=== PATIENT | male | born 1935 | race African-American/Black ===

== ENCOUNTER 2017-03-31 10:20 | Observation (INO) | payer OTHER, MEDICARE ==
[~2017-03-31] VITALS: Ht 172.7 cm; Wt 58.6 kg
[2017-03-31] VITALS (7 sets, daily range): BP systolic 149–185; BP diastolic 67–80; PULSE 50–74; RESP 16–20; TEMP 97.9–98.8; O2SAT 96–100
[2017-03-31] MEDS ORDERED: OMEP20TA PO (10:57)
[2017-03-31] MEDS ORDERED: ASPI81CH37 CHEW (10:57)
[2017-03-31] MEDS ORDERED: VENL75TA PO (10:57)
[2017-03-31] MEDS ORDERED: DOCU250C PO (10:57)
[2017-03-31] MEDS ORDERED: SIMV80TA PO (10:57)
[2017-03-31] MEDS ORDERED: ERYT1SUS5 PO (10:57)
[2017-03-31] MEDS ORDERED: NICO14DI23 (10:57)
[2017-03-31] MEDS ORDERED: FINA5TAB2 PO (10:57)
[2017-03-31] MEDS ORDERED: FERR324T4 PO (10:57)
[2017-03-31] MEDS ORDERED: CARB15DR20 (10:57)
[2017-03-31] MEDS ORDERED: ASPIRIN 81 MG CHEW TAB PO ONE (11:00)
[2017-03-31] MEDS ORDERED: SODIUM CHLORIDE 0.9% FLUSH 10 ML FLUSH IVF PRN (11:00)
[2017-03-31] MEDS ORDERED: ENALAPRILAT 2.5 MG/2 ML VIAL IV PUSH ONE (11:00)
[2017-03-31] MEDS: RESP: ALBUTEROL 2.5 MG/3 ML NEB (SCH) INH (11:25)
[2017-03-31 11:27] LABS: AUTOMATED NEUTROPHIL # 3.4 TH/MM3 (1.8-7.7); BASOPHIL % 0.5 % (0.0-2.0); EOSINOPHIL # 0.1 TH/MM3 (0-0.4); EOSINOPHIL % 1.3 % (0.0-4.0); HEMATOCRIT 35.1 % (39.0-51.0); HEMO FLAGS DIFF FINAL; LYMPH % 27.8 % (9.0-44.0); LYMPHOCYTE # 1.6 TH/MM3 (1.0-4.8); MEAN CORPUSCULAR HEMOGLOBIN 30.1 PG (27.0-34.0); MEAN CORPUSCULAR HGB CONC 32.4 % (32.0-36.0); MONO % 9.3 % (0.0-8.0); NEUT % 61.1 % (16.0-70.0); PLATELET COUNT 134 TH/MM3 (150-450); RED BLOOD COUNT 3.77 MIL/MM3 (4.50-5.90); WHITE BLOOD COUNT 5.6 TH/MM3 (4.0-11.0)
--- NOTE | 2017-03-31 11:34 | RADRPT ---
EXAM DATE/TIME: 03/31/2017 11:05 [place] COMPARISON: No previous studies available for comparison. INDICATIONS : Shortness of breath. MEDICAL HISTORY : Hypertension. Diabetes mellitus type II. SURGICAL HISTORY : Cholecystectomy. ENCOUNTER: Initial ACUITY: 1 day PAIN SCORE: 0/10 LOCATION: Bilateral chest FINDINGS: No focal consolidation. Minimal basilar atelectasis. Elevated left hemidiaphragm. No effusion or pneu mothorax. Remote right clavicle fracture and multiple remote rib fractures on the right. Intra-articu lar or periarticular ossifications around the right shoulder. CONCLUSION: 1. Minimal basilar atelectasis. Elevated left hemidiaphragm. No focal consolidation or effusion. Nelson Stafford MD on March 31, 2017 at 11:31 Board Certified Radiologist. This report was verified electronically.
[2017-03-31 11:35] LABS: PROTHROMBIN TIME - PATIENT 11.1 SEC (9.8-11.6)
[2017-03-31 11:37] LABS: APTT (PATIENT) 32.7 SEC (24.3-30.1)
[2017-03-31 11:50] LABS: ALT (GPT) 18 U/L (12-78); ANION GAP 11 MEQ/L (5-15); AST (GOT) 14 U/L (15-37); BICARBONATE 19.2 MEQ/L (21.0-32.0); BLOOD UREA NITROGEN 28 MG/DL (7-18); CHLORIDE 113 MEQ/L (98-107); GLOMERULAR FILTRATION RATE 37 ML/MIN (>89); MAGNESIUM 1.9 MG/DL (1.5-2.5); POTASSIUM 4.1 MEQ/L (3.5-5.1); SODIUM (NA) 143 MEQ/L (136-145)
[2017-03-31 11:53] LABS: ALKALINE PHOSPHATASE 99 U/L (45-117); CREATINE KINASE 112 U/L (39-308); TOTAL BILIRUBIN ADULT 0.4 MG/DL (0.2-1.0)
[2017-03-31 12:05] LABS: CKMB 1.5 NG/ML (0.5-3.6)
--- NOTE | 2017-03-31 12:23 | PD ---
HPI Chief Complaint: Cardiac Complaint Time Seen by Provider: 10:42 Travel History International Travel<30 days: No Contact w/Intl Traveler<30days: No Traveled to known affect area: No History of Present Illness HPI AT [facility]ISIT WHEN STAFF NOTICED HE HAD A LOW HEART RATE, EKG DONE FOUND SINUS MUNIRA AT 38, SENT TO ED...PT HAS NO ACTIVE COMPLAINT AT THIS TIME PFSH Past Medical History Diabetes: Yes Patient Takes Glucophage: No Diverticulitis: Yes GERD: Yes Hypertension: Yes Reproductive: Yes (benign prostatatic hyperplasia) Past Surgical History Abdominal Surgery: Yes (hernia) Cholecystectomy: Yes Social History Alcohol Use: Yes (couple times a week) Tobacco Use: Yes (/2 ppd) Substance Use: No Allergies-Medications (Allergen,Severity, Reaction): Coded Allergies: No Known Allergies (Unverified , 03/31/17) Reported Meds & Prescriptions Reported Meds & Active Scripts Active Reported Eq Nicotine (Nicotine) 14 Mg/24 Hr Dis Erythromycin Ethylsuccinate Liq (Erythromycin Ethylsuccinate) 200 Mg/Ml Susp 200 Mg PO Q6H Carbamide Peroxide 6.5 % Drops Effexor (Venlafaxine HCl) 75 Mg Tab 75 Mg PO DAILY Finasteride 5 Mg Tab 5 Mg PO DAILY Do not crush. Simvastatin 80 Mg Tab 80 Mg PO DAILY Omeprazole 20 Mg Tab 20 Mg PO DAILY Ferrous Sulfate DR (Ferrous Sulfate) 324 Mg Tabdr 324 Mg PO DAILY Docusate Sodium 250 Mg Cap 250 Mg PO DAILY Aspirin Low Dose (Aspirin) 81 Mg Chew 81 Mg CHEW DAILY Review of Systems Except as stated in HPI: all other systems reviewed are Neg Cardiovascular: Positive: Palpitations Physical Exam Narrative GENERAL: SKIN: Warm and dry. HEAD: Atraumatic. Normocephalic. EYES: Pupils equal and round. No scleral icterus. No injection or drainage. ENT: No nasal bleeding or discharge. Mucous membranes pink and moist. NECK: Trachea midline. No JVD. CARDIOVASCULAR: Regular rate and rhythm. BUT BRADYCARDIC...STRONG PERIPHERAL PULSES AT RADIUS/DP BILATERALLY RESPIRATORY: No accessory muscle use. Clear to auscultation. Breath sounds equal bilaterally. GASTROINTESTINAL: Abdomen soft, non-tender, nondistended. Hepatic and splenic margins not palpable. MUSCULOSKELETAL: Extremities without clubbing, cyanosis, or edema. No obvious deformities. NEUROLOGICAL: Awake and alert. No obvious cranial nerve deficits. Motor grossly within normal limits. Five out of 5 muscle strength in the arms and legs. Normal speech. PSYCHIATRIC: Appropriate mood and affect; insight and judgment normal. Data Data Last Documented VS Orders Electrocardiogram (03/31/17 10:52) B-Type Natriuretic Peptide (03/31/17 10:52) Ckmb (Isoenzyme) Profile (03/31/17 10:52) Complete Blood Count With Diff (03/31/17 10:52) Comprehensive Metabolic Panel (03/31/17 10:52) Magnesium (Mg) (03/31/17 10:52) Prothrombin Time / Inr (Pt) (03/31/17 10:52) Act Partial Throm Time (Ptt) (03/31/17 10:52) Troponin I (03/31/17 10:52) Chest, Single Ap (03/31/17 10:52) Ecg Monitoring (03/31/17 10:52) Bilateral Bp Monitoring (03/31/17 10:52) Iv Access Insert/Monitor (03/31/17 10:52) Oximetry (03/31/17 10:52) Oxygen Administration (03/31/17 10:52) Aspirin Chew (Aspirin Chew) (03/31/17 11:00) Sodium Chloride 0.9% Flush (Ns Flush) (03/31/17 11:00) Enalaprilat Inj (Vasotec Inj) (03/31/17 11:00) Blood Glucose (03/31/17 10:55) Albuterol Neb (Albuterol Neb) (03/31/17 11:00) CKMB (03/31/17 11:00) CKMB% (03/31/17 11:00) Aspirin Chew (Aspirin Chew) (04/01/17 09:00) Finasteride (Proscar) (04/01/17 09:00) Docusate Calcium (Surfak) (04/01/17 09:00) Ferrous Sulfate (Ferrous Sulfate) (04/01/17 09:00) Pantoprazole (Protonix) (04/01/17 09:00) Atorvastatin (Lipitor) (04/01/17 09:00) Venlafaxine Xr (Effexor Xr) (04/01/17 09:00) Admit Order (Ed Use Only) (03/31/17 12:42) Labs MDM Medical Decision Making Medical Screen Exam Complete: Yes Emergency Medical Condition: Yes Medical Record Reviewed: Yes Interpretation(s) SINUS MUNIRA AT 39, CLAUDIA, NONSPEC STT CHANGES, NO STEMI PATTERN Differential Diagnosis HYPERKALEMIA V MUNIRA REQUIRING PACER V RENAL INDUCED V HYPOGLYCEMIA Narrative Course CURRENTLY CONTINUES TO BE BRADYCARDIC RANGING FROM 38-55, BP WAS ELEV WITH SBP 200, EXCEPT FOR RENAL INSUFF ELECTROLYTES WNL, CXR DID NOT SHOW PULM EDEMA, WILL ADVISED AT LEAST OBSERVATION FOR CARDIO EVAL AND POSSIBLE NEED FOR PACEMAKER Critical Care Narrative CRITICAL CARE NOTE: With evaluation of the patient, labs, EKG, receipt of radiologic studies, administration of medications, reevaluation the patient and discussion of the patient with the admitting physicians, the total critical care time was [45] minutes. Time to perform other separately billable procedures was not included in the critical care time. patient had bedside paddles ready in event external pacing necessary as well as stand by atropine in case patient became symptomatic bradycardia. preparations made anticipatory due to severe bradycardia Diagnosis Primary Impression: Bradycardia, sinus, persistent, severe Additional Impression: RENAL INSUFFICIENCY Admitting Information Admitting Physician Requests: Observation Scripts Nicotine (Eq Nicotine)14 Mg/24 Hr Dis1 Patch T-DERMAL DAILY #30 PATCH Prov:Seema Sorto MD 04/02/17 Lisinopril 5 Mg Tab5 Mg PO DAILY #30 TAB Prov:Seema Sorto MD 04/02/17 Vasile Luevano MD Mar 31, 2017 12:23 Neutrophils # (Auto) 3.4 TH/MM3 Lymphocytes # (Auto) 1.6 TH/MM3 Monocytes # (Auto) 0.5 TH/MM3 Eosinophils # (Auto) 0.1 TH/MM3 Basophils # (Auto) 0.0 TH/MM3 CBC Comment DIFF FINAL Differential Comment Prothrombin Time 11.1 SEC Prothromb Time International 1.0 RATIO Ratio Activated Partial 32.7 SEC Thromboplast Time Sodium Level 143 MEQ/L Potassium Level 4.1 MEQ/L Chloride Level 113 MEQ/L Carbon Dioxide Level 19.2 MEQ/L Anion Gap 11 MEQ/L Blood Urea Nitrogen 28 MG/DL Creatinine 2.12 MG/DL Estimat Glomerular Filtration 37 ML/MIN Rate Random Glucose 84 MG/DL Calcium Level 8.9 MG/DL Magnesium Level 1.9 MG/DL Total Bilirubin 0.4 MG/DL Aspartate Amino Transf 14 U/L (AST/SGOT) Alanine Aminotransferase 18 U/L (ALT/SGPT) Alkaline Phosphatase 99 U/L Total Creatine Kinase 112 U/L Creatine Kinase MB 1.5 NG/ML Troponin I LESS THAN 0.02 NG/ML B-Type Natriuretic Peptide 284 PG/ML Total Protein 7.1 GM/DL Albumin 3.6 GM/DL MDM Medical Decision Making Medical Screen Exam Complete: Yes Emergency Medical Condition: Yes Medical Record Reviewed: Yes Interpretation(s) SINUS MUNIRA AT 39, CLAUDIA, NONSPEC STT CHANGES, NO STEMI PATTERN Differential Diagnosis HYPERKALEMIA V MUNIRA REQUIRING PACER V RENAL INDUCED V HYPOGLYCEMIA Narrative Course CURRENTLY CONTINUES TO BE BRADYCARDIC RANGING FROM 38-55, BP WAS ELEV WITH SBP 200, EXCEPT FOR RENAL INSUFF ELECTROLYTES WNL, CXR DID NOT SHOW PULM EDEMA, WILL ADVISED AT LEAST OBSERVATION FOR CARDIO EVAL AND POSSIBLE NEED FOR PACEMAKER Diagnosis Primary Impression: Bradycardia, sinus, persistent, severe Additional Impression: RENAL INSUFFICIENCY Admitting Information Admitting Physician Requests: Observation Vasile Luevano MD Mar 31, 2017 12:23
[2017-03-31] MEDS ORDERED: NALOXONE HCL 0.4 MG/ML AMP IV PRN (13:15)
[2017-03-31] MEDS ORDERED: ACETAMINOPHEN 325 MG TAB PO PRN ×2 (13:15)
[2017-03-31] MEDS ORDERED: SODIUM CHLORIDE 0.9% FLUSH 10 ML FLUSH IV FLUSH PRN (13:15)
[2017-03-31] MEDS ORDERED: amLODIPine BESYLATE 5 MG TAB PO SCH (13:15)
--- NOTE | 2017-03-31 13:21 | HHI.HP ---
[facility] Service [facility] Primary Care Physician [facility] Admission Diagnosis SEVERE BRADYCARDIA Diagnoses: Chief Complaint: Referred by [place] Travel History International Travel<30 Days: No Contact w/Intl Traveler <30 Da: No Traveled to Known Affected Are: No History of Present Illness The patient is an 82-year-old male with a past medical history of diabetes and chronic kidney disease who is presenting to the hospital with a slow heart rate. The patient said that he went to the [place] for a routine follow-up appointment where he was found to have a low heart rate. The patient denies any symptoms. He says he has been breathing comfortably. He denies any aches or pains. He has been eating well. He denies any irregularity in bowel movements. He has not been having any chest pain. He does endorse chronic insomnia. He says he ambulates with a cane because he has pain from prior leg surgeries. In the emergency department he was found to have a heart rate in the high 30s. His blood pressure was also noted to be very high, and the patient denies having a history of high blood pressure. The patient wanted to go home. He says he has been using a nicotine patch but still smokes half a pack a day. He says he was told he has a kidney disease but is unsure what kind. Review of Systems Except as stated in HPI: all other systems reviewed are Neg Past Family Social History Past Medical History Diabetes Chronic kidney disease Bilateral broken legs status post surgery Left hernia repair Allergies: Coded Allergies: No Known Allergies (Unverified , 03/31/17) Active Ordered Medications Current Medications Medications (Trade) Dose Ordered Sig/Donny Route Start Time Stop Time Status Last Admin (NS Flush) 2 ml UNSCH PRN IVF 03/31/17 11:00 (Aspirin Chew) 81 mg DAILY CHEW 04/01/17 09:00 (Proscar) 5 mg DAILY PO 04/01/17 09:00 (Surfak) 240 mg DAILY PO 04/01/17 09:00 (Ferrous Sulfate) 325 mg DAILY PO 04/01/17 09:00 (Protonix) 20 mg DAILY PO 04/01/17 09:00 (Lipitor) 40 mg DAILY PO 04/01/17 09:00 (Effexor Xr) 75 mg DAILY PO 04/01/17 09:00 (NS Flush) 2 ml UNSCH PRN IV FLUSH 03/31/17 13:15 UNV (NS Flush) 2 ml BID IV FLUSH 03/31/17 21:00 UNV (Tylenol) 650 mg Q4H PRN PO 03/31/17 13:15 UNV (Heparin Inj) 5,000 units Q8H SQ 03/31/17 13:15 UNV (Tylenol) 650 mg Q6H PRN PO 03/31/17 13:15 UNV (Narcan Inj) 0.4 mg UNSCH PRN IV 03/31/17 13:15 UNV (Bre-Colace) 1 tab BID PO 03/31/17 21:00 UNV Family History The patient denies pertinent family history Social History The patient smokes half a pack daily. He has social alcohol use. Physical Exam Vital Signs Vital Signs Date Time Temp Pulse Resp B/P Pulse Ox O2 Delivery O2 Flow Rate FiO2 03/31/17 12:55 74 18 185/74 97 03/31/17 11:14 50 18 168/72 98 03/31/17 11:00 98 Room Air 03/31/17 10:21 98.8 50 20 153/71 99 Physical Exam GENERAL: This is a well-nourished, well-developed patient, in no apparent distress. SKIN: No rashes, ecchymoses or lesions. Cool and dry. HEAD: Atraumatic. Normocephalic. No temporal or scalp tenderness. EYES: Pupils equal round and reactive. Extraocular motions intact. No scleral icterus. No injection or drainage. ENT: Nose without bleeding, purulent drainage or septal hematoma. Throat without erythema, tonsillar hypertrophy or exudate. Uvula midline. Airway patent. NECK: Trachea midline. No JVD or lymphadenopathy. Supple, nontender, no meningeal signs. CARDIOVASCULAR: Bradycardic without murmurs, gallops, or rubs. RESPIRATORY: Clear to auscultation. Breath sounds equal bilaterally. No wheezes , rales, or rhonchi. GASTROINTESTINAL: Abdomen soft, non-tender, nondistended. No hepato-splenomegaly , or palpable masses. No guarding. MUSCULOSKELETAL: Extremities without clubbing, cyanosis, or edema. No joint tenderness, effusion, or edema noted. NEUROLOGICAL: Awake and alert. Cranial nerves II through XII intact. Motor and sensory grossly within normal limits. Five out of 5 muscle strength in all muscle groups. Normal speech. PSYCH: Mood and affect appropriate. Laboratory Laboratory Tests Test 03/31/17 11:00 White Blood Count 5.6 Red Blood Count 3.77 Hemoglobin 11.4 Hematocrit 35.1 Mean Corpuscular Volume 93.0 Mean Corpuscular Hemoglobin 30.1 Mean Corpuscular Hemoglobin 32.4 Concent Red Cell Distribution Width 13.0 Platelet Count 134 Mean Platelet Volume 9.9 Neutrophils (%) (Auto) 61.1 Lymphocytes (%) (Auto) 27.8 Monocytes (%) (Auto) 9.3 Eosinophils (%) (Auto) 1.3 Basophils (%) (Auto) 0.5 Neutrophils # (Auto) 3.4 Lymphocytes # (Auto) 1.6 Monocytes # (Auto) 0.5 Eosinophils # (Auto) 0.1 Basophils # (Auto) 0.0 CBC Comment DIFF FINAL Differential Comment Prothrombin Time 11.1 Prothromb Time International 1.0 Ratio Activated Partial 32.7 Thromboplast Time Sodium Level 143 Potassium Level 4.1 Chloride Level 113 Carbon Dioxide Level 19.2 Anion Gap 11 Blood Urea Nitrogen 28 Creatinine 2.12 Estimat Glomerular Filtration 37 Rate Random Glucose 84 Calcium Level 8.9 Magnesium Level 1.9 Total Bilirubin 0.4 Aspartate Amino Transf 14 (AST/SGOT) Alanine Aminotransferase 18 (ALT/SGPT) Alkaline Phosphatase 99 Total Creatine Kinase 112 Creatine Kinase MB 1.5 Troponin I LESS THAN 0.02 B-Type Natriuretic Peptide 284 Total Protein 7.1 Albumin 3.6 Result Diagram: 03/31/17 1100 03/31/17 1100 Imaging Last Impressions Chest X-Ray 03/31/17 1052 Signed Impressions: Service Date/Time: March 11:05 - CONCLUSION: 1. Minimal basilar atelectasis. Elevated left hemidiaphragm. No focal consolidation or effusion. Nelson Stafford MD Assessment and Plan Assessment and Plan Sinus bradycardia HR has been in the high 30s. The pt denies any symptoms. [facility] Troponin negative. No ischemia changes on EKG. CXR unremarkable. Not on any AV vianney blocking medications. - continue to monitor on telemetry. - trend troponins. - cardiology consult if pt develops symptoms or bradycardia becomes more pronounced. Accelerated hypertension The patient denies any history of hypertension. - Vasotec as needed. - Start lisinopril as the patient has a history of diabetes and chronic kidney disease. CKD Unsure of baseline. - avoid nephrotoxic agents. Nicotine abuse The pt smokes a half pack daily. - cessation instruction. - continue nicotine patch. DM The pt says he is no longer on meds for diabetes. - follow glucose and start sliding scale if needed. Leg pain/ Weakness The patient endorses chronic leg pain and has been having difficulty ambulating. He uses a cane. - Physical therapy evaluation. - Tylenol as needed. Anemia Unsure of baseline. Likely secondary to renal disease. - Follow CBC. PPx: Heparin Code Status Full Discussed Condition With Pt, pt's family, nurse, Hakan Jones DO Mar 31, 2017 13:21
[2017-03-31] MEDS ORDERED: LISINOPRIL 10 MG TAB PO SCH (13:30)
[2017-03-31] MEDS ORDERED: ARTIFICIAL TEARS OPTH SOLN 15 ML BTL LEFT EYE PRN (13:30)
--- NOTE | 2017-03-31 13:46 | EKG ---
Date Performed: 03/31/2017 Time Performed: 10:47:01 PTAGE: 82 years EKG: SINUS BRADYCARDIA BORDERLINE ECG NO PREVIOUS TRACING DOCTOR: Polly [place] Interpretating Date/Time 03/31/2017 13:43:09
[2017-03-31] MEDS: NICOTINE 14 MG/24 HR PATCH T-DERMAL SCH (14:06)
[2017-03-31] MEDS: HEPARIN SODIUM - SQ 10,000 UNITS/ML VIAL SQ SCH ×2 (14:07→22:33)
[2017-03-31 14:24] LABS: BACTERIA, URINE RARE /hpf; BLOOD, URINE TRACE (NEG); GLUCOSE,URINE NEG (NEG); HYALINE CAST, URINE 3 /lpf (RARE); KETONE, URINE NEG (NEG); NITRITE,URINE NEG (NEG); PH, URINE 5.5 (5.0-8.5); SQUAMOUS EPITHELIAL CELL URINE <1 /hpf (0-5); TRANSITIONAL EPI CELLS, URINE <1 /hpf; URINE COLOR LIGHT-YELLOW (YELLW/STRAW)
[2017-03-31 14:26] LABS: COMMENT (UR) CULTURE INDICATED; CULTURE IF INDICATED CULTURE INDICATED
[2017-03-31] MEDS ORDERED: DOCUSATE SODIUM 50 MG/SENNA 8.6 MG TAB PO SCH (21:00)
[2017-03-31] MEDS ORDERED: MELATONIN 5 MG TAB PO PRN (21:00)
[2017-03-31] MEDS: SODIUM CHLORIDE 0.9% FLUSH 10 ML FLUSH IV FLUSH SCH (22:33)
[2017-04-01] VITALS (10 sets, daily range): BP systolic 140–199; BP diastolic 59–108; PULSE 37–80; RESP 16–18; TEMP 98–98.3; O2SAT 98–100
[2017-04-01] MEDS: HEPARIN SODIUM - SQ 10,000 UNITS/ML VIAL SQ SCH ×3 (06:40→22:08)
[2017-04-01 08:16] LABS: AUTOMATED NEUTROPHIL # 2.7 TH/MM3 (1.8-7.7); BASOPHIL % 0.5 % (0.0-2.0); EOSINOPHIL # 0.1 TH/MM3 (0-0.4); EOSINOPHIL % 1.5 % (0.0-4.0); HEMATOCRIT 35.5 % (39.0-51.0); HEMO FLAGS DIFF FINAL; LYMPH % 33.1 % (9.0-44.0); LYMPHOCYTE # 1.6 TH/MM3 (1.0-4.8); MEAN CELL VOLUME 92.9 FL (80.0-100.0); MEAN CORPUSCULAR HEMOGLOBIN 30.2 PG (27.0-34.0); MEAN CORPUSCULAR HGB CONC 32.5 % (32.0-36.0); MONO % 8.2 % (0.0-8.0); NEUT % 56.7 % (16.0-70.0); PLATELET COUNT 129 TH/MM3 (150-450); RED BLOOD COUNT 3.83 MIL/MM3 (4.50-5.90); WHITE BLOOD COUNT 4.8 TH/MM3 (4.0-11.0)
[2017-04-01 08:38] LABS: BICARBONATE 22.5 MEQ/L (21.0-32.0); POTASSIUM 4.3 MEQ/L (3.5-5.1)
[2017-04-01] MEDS ORDERED: FINASTERIDE 5 MG TAB PO SCH (09:00)
[2017-04-01] MEDS: FERROUS SULFATE 325 MG (65 MG ELEMENTAL IRON) TAB PO SCH (09:44)
[2017-04-01] MEDS: REMOVE OLD PATCH T-DERMAL SCH (09:45)
[2017-04-01] MEDS: NICOTINE 14 MG/24 HR PATCH T-DERMAL SCH (09:45)
[2017-04-01] MEDS: PANTOPRAZOLE SOD 20 MG DELAYED RELEASE TAB PO SCH (09:46)
[2017-04-01] MEDS: LISINOPRIL 5 MG TAB PO SCH (09:46)
[2017-04-01] MEDS: ASPIRIN 81 MG CHEW TAB CHEW SCH (09:46)
[2017-04-01] MEDS: DOCUSATE CALCIUM 240 MG CAP PO SCH (09:46)
[2017-04-01] MEDS: TAMSULOSIN HCL 0.4 MG CAP PO SCH (09:46)
[2017-04-01] MEDS: VENLAFAXINE HCL XR 75 MG CAP PO SCH (09:46)
[2017-04-01] MEDS: SODIUM CHLORIDE 0.9% FLUSH 10 ML FLUSH IV FLUSH SCH ×2 (09:46→22:07)
[2017-04-01] MEDS: ATORVASTATIN 40 MG TAB PO SCH (09:46)
--- NOTE | 2017-04-01 10:27 | HHI.PR ---
Subjective Remarks Complaints of feeling lightheadedness while walking. Also he has sob at times. He denies any chest pain. No n/v/d/c. No diaphoresis. Would like to see cardiology, discussed regarding possible PM Objective Vitals Vital Signs Date Time Temp Pulse Resp B/P Pulse Ox O2 Delivery O2 Flow Rate FiO2 04/01/17 08:00 98.3 37 18 163/85 100 04/01/17 04:00 98.0 50 16 140/59 98 04/01/17 04:00 Room Air 04/01/17 00:00 Room Air 04/01/17 00:00 98.2 51 16 152/65 98 03/31/17 20:18 53 03/31/17 20:00 98.0 54 16 172/80 100 03/31/17 20:00 Room Air 03/31/17 17:50 97.9 52 20 160/72 100 03/31/17 14:46 59 18 149/67 96 03/31/17 12:55 74 18 185/74 97 03/31/17 11:14 50 18 168/72 98 03/31/17 11:00 98 Room Air I/O 03/31/17 03/31/17 03/31/17 04/01/17 04/01/17 04/01/17 07:00 15:00 23:00 07:00 15:00 23:00 Intake Total 0 ml 0 ml Output Total 0 ml Balance 0 ml 0 ml Intake Oral 0 ml 0 ml Output Urine Total 0 ml # Voids 0 # Bowel Movements 0 0 Result Diagram: 04/01/17 0753 04/01/17 0753 Imaging Last Impressions Chest X-Ray 03/31/17 1052 Signed Impressions: Service Date/Time: March 11:05 - CONCLUSION: 1. Minimal basilar atelectasis. Elevated left hemidiaphragm. No focal consolidation or effusion. Nelson Stafford MD Objective Remarks GENERAL: This is a well-nourished, well-developed patient, in no apparent distress. NECK: Trachea midline. No JVD or lymphadenopathy. Supple, nontender, no meningeal signs. CARDIOVASCULAR: Bradycardic without murmurs, gallops, or rubs. RESPIRATORY: Clear to auscultation. Breath sounds equal bilaterally. No wheezes , rales, or rhonchi. GASTROINTESTINAL: Abdomen soft, non-tender, nondistended. No hepato-splenomegaly , or palpable masses. No guarding. MUSCULOSKELETAL: Extremities without clubbing, cyanosis, or edema. No joint tenderness, effusion, or edema noted. NEUROLOGICAL: Awake and alert. Cranial nerves II through XII intact. Motor and sensory grossly within normal limits. Five out of 5 muscle strength in all muscle groups. Normal speech. PSYCH: Mood and affect appropriate. A/P Assessment and Plan Sinus bradycardia HR has been in the high 30s. The pt denies any symptoms. [facility] Troponin negative. No ischemia changes on EKG. CXR unremarkable. Not on any AV vianney blocking medications. - continue to monitor on telemetry. - trend troponins. - cardiology consult Accelerated hypertension The patient denies any history of hypertension. - Vasotec as needed. - Start lisinopril as the patient has a history of diabetes and chronic kidney disease. CKD Unsure of baseline. - avoid nephrotoxic agents. Nicotine abuse The pt smokes a half pack daily. - cessation instruction. - continue nicotine patch. DM diet controlled The pt says he is no longer on meds for diabetes. - follow glucose and start sliding scale if needed. Leg pain/ Weakness The patient endorses chronic leg pain and has been having difficulty ambulating. He uses a cane. - Physical therapy evaluation. - Tylenol as needed. Anemia Unsure of baseline. Likely secondary to renal disease. - Follow CBC. PPx: Heparin Code Status Full Discussed Condition With Patient, nurse Seema Sorto MD Apr 01, 2017 10:27
--- NOTE | 2017-04-01 15:18 | PD.CONS ---
HPI Consult Requested By Primary Care Physician [facility] History of Present Illness 82-year-old male with a past medical history of diabetes, smoker and chronic kidney disease referred for bradycardia. The patient denies any symptoms. He says he has been breathing comfortably. He denies any aches or pains. He has been eating well. He has not been having any chest pain. He does endorse chronic insomnia. He says he ambulates with a cane because he has pain from prior leg surgeries. Review of Systems Consitutional: DENIES: Fatigue, Fever, Chills, Weight gain, Weight loss Eyes: DENIES: Amaurosis Fugax, Change in vision HEENT: DENIES: Lightheadedness, Change in hearing Respiratory: DENIES: See HPI, Cough, Snoring, Shortness of breath, Wheezing, Sputum production Cardiovascular: DENIES: See HPI, Chest pain, Palpitations, Syncope, Tachycardia Gastrointestinal: DENIES: Nausea, Vomiting, Change in bowel habits, Reflux, Bloody stools, Melena Genitourinary: DENIES: Urinary incontinence, Difficulty voiding Integumentary: DENIES: Rash Neurologic: DENIES: Tingling or numbness, Memory problems, Poor Balance, Stroke symptoms Musculoskeletal: DENIES: Joint pain, Muscle pain, Limited range of motion, Back pain Psychiatric: DENIES: Anxiety, Depression, Sleep disturbances Hematologic: DENIES: Bruising tendencies, Bleeding tendencies Endocrine: DENIES: Weight gain, Weight loss, Thyroid disease Past Family Social History Allergies: Coded Allergies: No Known Allergies (Unverified , 03/31/17) Past Medical History Diabetes Chronic kidney disease Bilateral broken legs status post surgery Left hernia repair Reported Medications Reported Meds & Active Scripts Active Reported Eq Nicotine (Nicotine) 14 Mg/24 Hr Dis Erythromycin Ethylsuccinate Liq (Erythromycin Ethylsuccinate) 200 Mg/Ml Susp 200 Mg PO Q6H Carbamide Peroxide 6.5 % Drops Effexor (Venlafaxine HCl) 75 Mg Tab 75 Mg PO DAILY Finasteride 5 Mg Tab 5 Mg PO DAILY Do not crush. Simvastatin 80 Mg Tab 80 Mg PO DAILY Omeprazole 20 Mg Tab 20 Mg PO DAILY Ferrous Sulfate DR (Ferrous Sulfate) 324 Mg Tabdr 324 Mg PO DAILY Docusate Sodium 250 Mg Cap 250 Mg PO DAILY Aspirin Low Dose (Aspirin) 81 Mg Chew 81 Mg CHEW DAILY Active Ordered Medications Current Medications Medications (Trade) Dose Ordered Sig/Donny Route Start Time Stop Time Status Last Admin (Aspirin Chew) 81 mg DAILY CHEW 04/01/17 09:00 04/01/17 09:46 (Surfak) 240 mg DAILY PO 04/01/17 09:00 04/01/17 09:46 (Ferrous Sulfate) 325 mg DAILY PO 04/01/17 09:00 04/01/17 09:44 (Protonix) 20 mg DAILY PO 04/01/17 09:00 04/01/17 09:46 (Lipitor) 40 mg DAILY PO 04/01/17 09:00 04/01/17 09:46 (Effexor Xr) 75 mg DAILY PO 04/01/17 09:00 04/01/17 09:46 (NS Flush) 2 ml UNSCH PRN IV FLUSH 03/31/17 13:15 (NS Flush) 2 ml BID IV FLUSH 03/31/17 21:00 04/01/17 09:46 (Tylenol) 650 mg Q4H PRN PO 03/31/17 13:15 (Heparin Inj) 5,000 units Q8H SQ 03/31/17 14:00 04/01/17 14:03 (Tylenol) 650 mg Q6H PRN PO 03/31/17 13:15 (Narcan Inj) 0.4 mg UNSCH PRN IV 03/31/17 13:15 (Flomax) 0.4 mg DAILY PO 04/01/17 09:00 04/01/17 09:46 (Habitrol 14 Mg Patch.24 Hr) 1 patch DAILY T-DERMAL 03/31/17 14:00 04/01/17 09:45 Miscellaneous Information 1 DAILY T-DERMAL 04/01/17 09:00 04/01/17 09:45 (Melatonin) 5 mg HS PRN PO 03/31/17 21:00 (Tears Naturale Opth Soln) 1 drop Q4H PRN LEFT EYE 03/31/17 13:30 (Vasotec Inj) 1.25 mg Q6H PRN IV PUSH 03/31/17 13:30 (Prinivil) 5 mg DAILY PO 04/01/17 09:00 04/01/17 09:46 Physical Exam Vital Signs Vital Signs Date Time Temp Pulse Resp B/P Pulse Ox O2 Delivery O2 Flow Rate FiO2 04/01/17 12:00 98.0 39 18 199/78 99 04/01/17 08:00 98.3 37 18 163/85 100 04/01/17 04:00 98.0 50 16 140/59 98 04/01/17 04:00 Room Air 04/01/17 00:00 Room Air 04/01/17 00:00 98.2 51 16 152/65 98 03/31/17 20:18 53 03/31/17 20:00 98.0 54 16 172/80 100 03/31/17 20:00 Room Air 03/31/17 17:50 97.9 52 20 160/72 100 Physical Exam GENERAL: Well-nourished, well-developed patient. SKIN: Warm and dry. HEAD: Normocephalic. EYES: No scleral icterus. No injection or drainage. NECK: Supple, trachea midline. No JVD or lymphadenopathy. CARDIOVASCULAR: Regular rate and rhythm without murmurs, gallops, or rubs. RESPIRATORY: Breath sounds equal bilaterally. No accessory muscle use. GASTROINTESTINAL: Abdomen soft, non-tender, nondistended. EXTREMITIES: No cyanosis, or edema. NEUROLOGICAL: Awake, alert, and oriented x 3. Non-focal. Laboratory Laboratory Tests Test 03/31/17 04/01/17 04/01/17 16:43 01:19 07:53 Troponin I LESS THAN 0.02 0.02 White Blood Count 4.8 Red Blood Count 3.83 Hemoglobin 11.5 Hematocrit 35.5 Mean Corpuscular Volume 92.9 Mean Corpuscular Hemoglobin 30.2 Mean Corpuscular Hemoglobin 32.5 Concent Red Cell Distribution Width 13.0 Platelet Count 129 Mean Platelet Volume 9.7 Neutrophils (%) (Auto) 56.7 Lymphocytes (%) (Auto) 33.1 Monocytes (%) (Auto) 8.2 Eosinophils (%) (Auto) 1.5 Basophils (%) (Auto) 0.5 Neutrophils # (Auto) 2.7 Lymphocytes # (Auto) 1.6 Monocytes # (Auto) 0.4 Eosinophils # (Auto) 0.1 Basophils # (Auto) 0.0 CBC Comment DIFF FINAL Differential Comment Sodium Level 143 Potassium Level 4.3 Chloride Level 114 Carbon Dioxide Level 22.5 Anion Gap 7 Blood Urea Nitrogen 26 Creatinine 2.10 Estimat Glomerular Filtration 37 Rate Random Glucose 124 Calcium Level 8.8 Date/Time Procedure Status Source Growth 03/31/17 13:30 Urine Culture - Preliminary Resulted Urine Clean Catch NO GROWTH IN 24 HOURS. Result Diagram: 04/01/17 0753 04/01/17 0753 Imaging Last Impressions Chest X-Ray 03/31/17 1052 Signed Impressions: Service Date/Time: , March 31, 2017 11:05 - CONCLUSION: 1. Minimal basilar atelectasis. Elevated left hemidiaphragm. No focal consolidation or effusion. Nelson Stafford MD Assessment and Plan Problem List: (1) Bradycardia, sinus, persistent, severe Assessment and Plan: 82 y/o M with ? asymptomatic bradycardia. Negative cardiac markers. No pauses on telemetry. No CV complaints. No use of AV blocking agents. DDx: Conduction disease vs Ischemia. CKD. Recommendations: 1. 2D Echo 2. Telemetry 3. Lexiscan Stress Test. 4. Dr. Liao consult for PPM evaluation Sandeep Sanford MD Apr 01, 2017 15:17
--- NOTE | 2017-04-01 16:27 | EKG ---
Date Performed: 03/31/2017 Time Performed: 17:09:56 PTAGE: 82 years EKG: SINUS BRADYCARDIA WITH OCCASIONAL VENTRICULAR PREMATURE COMPLEXES BORDERLINE ECG PREVIOUS TRACING : 03/31/2017 10.47 Compared to prior tracing no significant change DOCTOR: Claritza Prasad Interpretating Date/Time 04/01/2017 16:26:38
--- NOTE | 2017-04-01 16:29 | EKG ---
Date Performed: 03/31/2017 Time Performed: 22:40:10 PTAGE: 82 years EKG: SINUS BRADYCARDIA WITH SINUS ARRHYTHMIA BORDERLINE ECG PREVIOUS TRACING : 03/31/2017 17.09 Compared to prior tracing no significant change DOCTOR: Claritza Prasad Interpretating Date/Time 04/01/2017 16:26:54
--- NOTE | 2017-04-01 17:45 | ECHRPT ---
Indication: Shortness of breath CONCLUSIONS Normal left ventricular size. Wall thickness is normal. The left ventricular systolic function is low normal with an estimated ejection fraction in the rang e of 50- 55%. No regional wall motion abnormalities are present. Left ventricular diastolic function parameters are normal. Structurally normal mitral valve. Ikex-gg-[id number] mitral valve regurgitation. Aortic valve sclerosis is present. Trileaflet aortic valve. No aortic valve regurgitation. Structurally normal tricuspid valve. There is mild to moderate tricuspid valve regurgitation. There is estimated mild pulmonary hypertension present (range 40-50 mmHg). BP: 163 / 85 HR: 37 Rhythm: Sinus MEASUREMENTS (Male / Female) Normal Values Technical Quality:Good 2D ECHO LV Diastolic Diameter PLAX 5.0 cm 4.2 - 5.9 / 3.9 - 5.3 cm LV Systolic Diameter PLAX 3.8 cm IVS Diastolic Thickness 0.8 cm 0.6 - 1.0 / 0.6 - 0.9 cm LVPW Diastolic Thickness 0.8 cm 0.6 - 1.0 / 0.6 - 0.9 cm LV Relative Wall Thickness 0.3 LVOT Diameter 2.3 cm Aortic Root Diameter 3.3 cm LA Systolic Diameter LX 3.9 cm 3.0 - 4.0 / 2.7 - 3.8 cm M-MODE AV Cusp Separation MM 2.3 cm DOPPLER AV Peak Velocity 101.0 cm/s AV Peak Gradient 4.1 mmHg AV Mean Gradient 2.0 mmHg AV Velocity Time Integral 28.0 cm LVOT Peak Velocity 63.2 cm/s LVOT Peak Gradient 1.6 mmHg LVOT Velocity Time Integral 17.8 cm LVOT Cardiac Index 1626.6 cm/minm AV Area Cont Eq vti 2.6 cm AV Area Cont Eq pk 2.6 cm Mitral E Point Velocity 75.0 cm/s LV E' Lateral Velocity 8.3 cm/s Mitral E to LV E' Lateral Ratio 9.0 LV E' Septal Velocity 5.5 cm/s Mitral E to LV E' Septal Ratio 13.7 TR Peak Velocity 299.0 cm/s TR Peak Gradient 35.8 mmHg PV Peak Velocity 51.1 cm/s PV Peak Gradient 1.0 mmHg FINDINGS LEFT VENTRICLE Normal left ventricular size. Wall thickness is normal. The left ventricular systolic function is low normal with an estimated ejection fraction in the rang e of 50- 55%. No regional wall motion abnormalities are present. Left ventricular diastolic function parameters are normal. RIGHT VENTRICLE Normal right ventricular size and systolic function. LEFT ATRIUM The left atrial size is ssty-ej-ojngegciwf dilated. RIGHT ATRIUM The right atrial size is mildly dilated. ATRIAL SEPTUM No atrial level shunt is demonstrated by color flow Doppler interrogation. AORTA The aortic root and proximal ascending aorta are normal in size on limited imaging. MITRAL VALVE Structurally normal mitral valve. Putw-cf-[id number] mitral valve regurgitation. AORTIC VALVE Aortic valve sclerosis is present. Trileaflet aortic valve. No aortic valve regurgitation. TRICUSPID VALVE Structurally normal tricuspid valve. There is mild to moderate tricuspid valve regurgitation. There is estimated mild pulmonary hypertension present (range 40-50 mmHg). PULMONARY VALVE The pulmonary valve is not well visualized. VESSELS The inferior vena cava is normal in size. There is greater than 50% respiratory change in dimension of the inferior vena cava (normal). PERICARDIUM There is no pericardial effusion. Sandeep Sanford MD (Electronically Signed) Final Date:01 April 2017 17:44
[2017-04-01] MEDS: ENALAPRILAT 1.25 MG/ML VIAL IV PUSH PRN (22:07)
[2017-04-02] VITALS (8 sets, daily range): BP systolic 141–194; BP diastolic 66–97; PULSE 38–79; RESP 18; TEMP 97.6–97.8; O2SAT 98–100
[2017-04-02] MEDS: HEPARIN SODIUM - SQ 10,000 UNITS/ML VIAL SQ SCH ×3 (05:47→20:34)
[2017-04-02] MEDS: LISINOPRIL 5 MG TAB PO SCH ×2 (09:00→10:39)
[2017-04-02] MEDS: REMOVE OLD PATCH T-DERMAL SCH (09:00)
[2017-04-02] MEDS: FERROUS SULFATE 325 MG (65 MG ELEMENTAL IRON) TAB PO SCH (09:41)
[2017-04-02] MEDS: ATORVASTATIN 40 MG TAB PO SCH (09:41)
[2017-04-02] MEDS: VENLAFAXINE HCL XR 75 MG CAP PO SCH (09:41)
[2017-04-02] MEDS: TAMSULOSIN HCL 0.4 MG CAP PO SCH (09:41)
[2017-04-02] MEDS: ASPIRIN 81 MG CHEW TAB CHEW SCH (09:41)
[2017-04-02] MEDS: SODIUM CHLORIDE 0.9% FLUSH 10 ML FLUSH IV FLUSH SCH ×2 (09:41→20:33)
[2017-04-02] MEDS: PANTOPRAZOLE SOD 20 MG DELAYED RELEASE TAB PO SCH (09:42)
[2017-04-02] MEDS: DOCUSATE CALCIUM 240 MG CAP PO SCH (09:42)
[2017-04-02] MEDS: NICOTINE 14 MG/24 HR PATCH T-DERMAL SCH (09:42)
--- NOTE | 2017-04-02 10:33 | HHI.PR ---
Subjective Remarks In bed. Says he feels much better. No n/v/d/c. Denies fever or chills. Says he is sob and also gets lightheaded with walking. He also admits having chest pain at times not not during the stay of hospitalization. Objective Vitals Vital Signs Date Time Temp Pulse Resp B/P Pulse Ox O2 Delivery O2 Flow Rate FiO2 04/02/17 09:50 43 04/02/17 08:09 97.7 79 18 164/74 99 04/02/17 04:00 Room Air 04/02/17 04:00 97.8 38 18 145/66 98 04/02/17 00:00 97.8 41 18 141/82 100 04/02/17 00:00 Room Air 04/01/17 21:55 182/84 04/01/17 20:21 80 04/01/17 20:00 98.2 51 16 188/78 98 04/01/17 20:00 Room Air 04/01/17 17:06 186/70 04/01/17 16:00 98.2 42 18 181/108 98 04/01/17 12:00 98.0 39 18 199/78 99 I/O 04/01/17 04/01/17 04/01/17 04/02/17 04/02/17 04/02/17 07:00 15:00 23:00 07:00 15:00 23:00 Intake Total 0 ml 480 ml 240 ml 0 ml Output Total 0 ml 0 ml Balance 0 ml 480 ml 240 ml 0 ml Intake Oral 0 ml 480 ml 240 ml 0 ml Output Urine Total 0 ml 0 ml # Voids 3 0 # Bowel Movements 0 2 0 0 Result Diagram: 04/01/17 0753 04/01/17 0753 Imaging Last Impressions Chest X-Ray 03/31/17 1052 Signed Impressions: Service Date/Time: March 11:05 - CONCLUSION: 1. Minimal basilar atelectasis. Elevated left hemidiaphragm. No focal consolidation or effusion. Nelson Stafford MD Objective Remarks GENERAL: This is a well-nourished, well-developed patient, in no apparent distress. NECK: Trachea midline. No JVD or lymphadenopathy. Supple, nontender, no meningeal signs. CARDIOVASCULAR: Bradycardic without murmurs, gallops, or rubs. RESPIRATORY: Clear to auscultation. Breath sounds equal bilaterally. No wheezes , rales, or rhonchi. GASTROINTESTINAL: Abdomen soft, non-tender, nondistended. No hepato-splenomegaly , or palpable masses. No guarding. MUSCULOSKELETAL: Extremities without clubbing, cyanosis, or edema. No joint tenderness, effusion, or edema noted. NEUROLOGICAL: Awake and alert. Cranial nerves II through XII intact. Motor and sensory grossly within normal limits. Five out of 5 muscle strength in all muscle groups. Normal speech. PSYCH: Mood and affect appropriate. A/P Assessment and Plan Sinus bradycardia HR has been in the high 30s. The pt denies any symptoms. [facility] Troponin negative. No ischemia changes on EKG. CXR unremarkable. Not on any AV vianney blocking medications. - continue to monitor on telemetry. - trend troponins neg plan for 2D ECHO . Plan for jamee scan. If nornal patient can be DC with hoslter monitor at home , to follow up as OP with cardio - cardiology consult, seen by Dr Stafford, appreciate recommendations Accelerated hypertension The patient denies any history of hypertension. - Vasotec as needed. - Start lisinopril as the patient has a history of diabetes and chronic kidney disease. CKD Unsure of baseline. - avoid nephrotoxic agents. Nicotine abuse The pt smokes a half pack daily. - cessation instruction. - continue nicotine patch. DM diet controlled The pt says he is no longer on meds for diabetes. - follow glucose and start sliding scale if needed. Leg pain/ Weakness The patient endorses chronic leg pain and has been having difficulty ambulating. He uses a cane. - Physical therapy evaluation. - Tylenol as needed. Anemia Unsure of baseline. Likely secondary to renal disease. H/H stable - Follow CBC. PPx: Heparin Code Status Full Discussed Condition With Patient, nurse DC plan if echo and lexiscan normal patient can be DC with holter monitor as OP to follwo up with cards . To follow up as OP with PCP and consultants. Seema Sorto MD Apr 02, 2017 10:32
--- NOTE | 2017-04-02 10:33 | HHI.DS ---
Discharge Summary Admission Date Mar 31, 2017 at 12:45 Discharge Date: Apr 02, 2017 Admitting Diagnosis SEVERE BRADYCARDIA Brief History - From Admission The patient is an 82-year-old male with a past medical history of diabetes and chronic kidney disease who is presenting to the hospital with a slow heart rate. The patient said that he went to the [facility] for a routine follow-up appointment where he was found to have a low heart rate. The patient denies any symptoms. He says he has been breathing comfortably. He denies any aches or pains. He has been eating well. He denies any irregularity in bowel movements. He has not been having any chest pain. He does endorse chronic insomnia. He says he ambulates with a cane because he has pain from prior leg surgeries. In the emergency department he was found to have a heart rate in the high 30s. His blood pressure was also noted to be very high, and the patient denies having a history of high blood pressure. The patient wanted to go home. He says he has been using a nicotine patch but still smokes half a pack a day. He says he was told he has a kidney disease but is unsure what kind. CBC/BMP: 04/01/17 0753 04/01/17 0753 Significant Findings Laboratory Tests Test 03/31/17 03/31/17 03/31/17 04/01/17 11:00 13:30 16:43 07:53 Red Blood Count 3.77 MIL/MM3 3.83 MIL/MM3 (4.50-5.90) (4.50-5.90) Hemoglobin 11.4 GM/DL 11.5 GM/DL (13.0-17.0) (13.0-17.0) Hematocrit 35.1 % 35.5 % (39.0-51.0) (39.0-51.0) Platelet Count 134 TH/MM3 129 TH/MM3 (150-450) (150-450) Monocytes (%) (Auto) 9.3 % (0.0-8.0) 8.2 % (0.0-8.0) Activated Partial 32.7 SEC Thromboplast Time (24.3-30.1) Chloride Level 113 MEQ/L 114 MEQ/L (98-107) (98-107) Carbon Dioxide Level 19.2 MEQ/L (21.0-32.0) Blood Urea Nitrogen 28 MG/DL (7-18) 26 MG/DL (7-18) Creatinine 2.12 MG/DL 2.10 MG/DL (0.60-1.30) (0.60-1.30) Estimat Glomerular Filtration 37 ML/MIN (>89) 37 ML/MIN (>89) Rate Aspartate Amino Transf 14 U/L (15-37) (AST/SGOT) Troponin I LESS THAN 0.02 LESS THAN 0.02 NG/ML NG/ML (0.02-0.05) (0.02-0.05) B-Type Natriuretic Peptide 284 PG/ML (0-100) Urine Protein 100 mg/dL (NEG-TRACE) Urine Occult Blood TRACE (NEG) Urine Leukocyte Esterase MOD (NEG) Urine RBC 5 /hpf (0-3) Urine WBC 38 /hpf (0-5) Urine WBC Clumps RARE (NONE) Urine Bacteria RARE /hpf (NONE) Random Glucose 124 MG/DL (74-106) PE at Discharge GENERAL: This is a well-nourished, well-developed patient, in no apparent distress. NECK: Trachea midline. No JVD or lymphadenopathy. Supple, nontender, no meningeal signs. CARDIOVASCULAR: Bradycardic without murmurs, gallops, or rubs. RESPIRATORY: Clear to auscultation. Breath sounds equal bilaterally. No wheezes , rales, or rhonchi. GASTROINTESTINAL: Abdomen soft, non-tender, nondistended. No hepato-splenomegaly , or palpable masses. No guarding. MUSCULOSKELETAL: Extremities without clubbing, cyanosis, or edema. No joint tenderness, effusion, or edema noted. NEUROLOGICAL: Awake and alert. Cranial nerves II through XII intact. Motor and sensory grossly within normal limits. Five out of 5 muscle strength in all muscle groups. Normal speech. PSYCH: Mood and affect appropriate. Hospital Course Sinus bradycardia HR has been in the high 30s. The pt denies any symptoms. [facility] Troponin negative. No ischemia changes on EKG. CXR unremarkable. Not on any AV vianney blocking medications. - continue to monitor on telemetry. - trend troponins neg 2D ECHO normal EF 55-60 %. Plan for jamee scan. If normal patient can be DC with Holter monitor at home , to follow up as OP with cardio - cardiology consult, seen by Dr Stafford, appreciate recommendations Accelerated hypertension The patient denies any history of hypertension. - Vasotec as needed. - Start lisinopril as the patient has a history of diabetes and chronic kidney disease. CKD Unsure of baseline. - avoid nephrotoxic agents. Nicotine abuse The pt smokes a half pack daily. - cessation instruction. - continue nicotine patch. DM diet controlled The pt says he is no longer on meds for diabetes. - follow glucose and start sliding scale if needed. Leg pain/ Weakness The patient endorses chronic leg pain and has been having difficulty ambulating. He uses a cane. - Physical therapy evaluation. - Tylenol as needed. Anemia Unsure of baseline. Likely secondary to renal disease. H/H stable - Follow CBC. PPx: Heparin Code Status Full Discussed Condition With Patient, nurse DC plan if echo and Lexiscan normal patient can be DC with Holter monitor as OP to follow up with cards . To follow up as OP with PCP and consultants. Pt Condition on Discharge: Stable Discharge Disposition: Discharge Home Discharge Time: > 30 minutes Discharge Instructions DIET: Follow Instructions for: Heart Healthy Diet Activities you can perform: Regular-No Restrictions Follow up Referrals: Cardiology - 1 Week with Sandeep Sanford MD PCP Follow-up - 3-5 Days New Orders: HOLTER MONITOR New Medications: Lisinopril (Lisinopril) 5 Mg Tab 5 MG PO DAILY Blood Pressure Management #30 TAB Nicotine (Eq Nicotine) 14 Mg/24 Hr Dis 1 PATCH T-DERMAL DAILY smoking cessation #30 PATCH Continued Medications: Aspirin (Aspirin Low Dose) 81 Mg Chew 81 MG CHEW DAILY Ref 0 TAB Carbamide Peroxide (Carbamide Peroxide) 6.5 % Drops Docusate Sodium (Docusate Sodium) 250 Mg Cap 250 MG PO DAILY Prevent Constipation #30 Ref 0 CAP Erythromycin Ethylsuccinate Liq (Erythromycin Ethylsuccinate Liq) 200 Mg/Ml Susp 200 MG PO Q6H Infection Ref [address] (Ferrous Sulfate DR) 324 Mg Tabdr 324 MG PO DAILY Nutritional Supplement #30 Ref 0 TAB Finasteride (Finasteride) 5 Mg Tab 5 MG PO DAILY Do not crush. Manage Prostate Problems #30 Ref 0 TAB Nicotine (Eq Nicotine) 14 Mg/24 Hr Dis Omeprazole (Omeprazole) 20 Mg Tab 20 MG PO DAILY #30 Ref 0 TAB Simvastatin (Simvastatin) 80 Mg Tab 80 MG PO DAILY Cholesterol Management #30 Ref 0 TAB Venlafaxine (Effexor) 75 Mg Tab 75 MG PO DAILY #30 Ref 0 TAB Seema Sorto MD Apr 02, 2017 10:33
[2017-04-02] MEDS ORDERED: LISI-519 PO (10:37)
[2017-04-02] MEDS ORDERED: NICO14DI23 T-DERMAL (10:37)
[2017-04-02] MEDS ORDERED: REGADENOSON INJ 0.4 MG/5 ML SYR ONE (14:51)
--- NOTE | 2017-04-02 16:34 | RADRPT ---
EXAM DATE/TIME: 04/02/2017 14:23 [place] COMPARISON: No previous studies available for comparison. INDICATIONS : Bradycardia. Coronary atherosclerosis. DOSE: 25.8 mCi Tc99m Myoview at stress. 7.9 mCi Tc99m Myoview at rest. 0.4 mg Lexiscan STRESS SYMPTOMS: None. EJECTION FRACTION: 39% MEDICAL HISTORY : Hypertension. Diabetes mellitus type 2. Congestive heart failure. Chronic renal disease. Smoker. SURGICAL HISTORY : Inguinal hernia repair. ENCOUNTER: Initial ACUITY: 1 day PAIN SCALE: 0/10 LOCATION: Chest TECHNIQUE: The patient underwent pharmacologic stress with infusion of prescribed dose. Continuous ECG tracing was monitored during stress. Gated SPECT imaging was performed after stress and conventional SPECT i maging was performed at rest. The examination was performed on a SPECT/CT scanner, both attenuation and non-corrected datasets were reviewed. FINDINGS: The gated cine loop images demonstrate global hypokinesis with left ventricular ejection fraction equ aling 39%. The cardiac SPECT stress and rest images demonstrate no fixed or reversible defects to rich ggest infarct or ischemia. CONCLUSION: 1. Global hypokinesis with left ventricular ejection fraction equaling 39%. 2. No fixed or reversible defects to suggest infarct or ischemia. RISK CATEGORY: Intermediate risk (1 - 3% annual mortality rate) Ck Hall MD on April 02, 2017 at 16:27 Board Certified Radiologist. This report was verified electronically.
[2017-04-02] MEDS: ENALAPRILAT 1.25 MG/ML VIAL IV PUSH PRN (20:32)
[2017-04-03] VITALS (7 sets, daily range): BP systolic 171–186; BP diastolic 74–89; PULSE 45–75; RESP 18; TEMP 98–98.5; O2SAT 97–98
[2017-04-03] MEDS: HEPARIN SODIUM - SQ 10,000 UNITS/ML VIAL SQ SCH ×3 (05:03→21:52)
[2017-04-03] MEDS: REMOVE OLD PATCH T-DERMAL SCH (09:00)
[2017-04-03] MEDS: VENLAFAXINE HCL XR 75 MG CAP PO SCH (09:37)
[2017-04-03] MEDS: DOCUSATE CALCIUM 240 MG CAP PO SCH (09:37)
[2017-04-03] MEDS: LISINOPRIL 5 MG TAB PO SCH (09:37)
[2017-04-03] MEDS: PANTOPRAZOLE SOD 20 MG DELAYED RELEASE TAB PO SCH (09:37)
[2017-04-03] MEDS: TAMSULOSIN HCL 0.4 MG CAP PO SCH (09:37)
[2017-04-03] MEDS: FERROUS SULFATE 325 MG (65 MG ELEMENTAL IRON) TAB PO SCH (09:37)
[2017-04-03] MEDS: ATORVASTATIN 40 MG TAB PO SCH (09:37)
[2017-04-03] MEDS: ASPIRIN 81 MG CHEW TAB CHEW SCH (09:37)
[2017-04-03] MEDS: NICOTINE 14 MG/24 HR PATCH T-DERMAL SCH (09:37)
[2017-04-03] MEDS: SODIUM CHLORIDE 0.9% FLUSH 10 ML FLUSH IV FLUSH SCH ×2 (09:38→21:51)
--- NOTE | 2017-04-03 10:33 | HHI.PR ---
Subjective Remarks Appears in nad. No n/v/d/c. Denies chest pain , lightheadedness. Says he felt sob with walking yesterday. Feels tired. Objective Vitals Vital Signs Date Time Temp Pulse Resp B/P Pulse Ox O2 Delivery O2 Flow Rate FiO2 04/03/17 08:00 98.3 45 18 186/83 97 04/03/17 04:00 98.1 60 18 171/79 98 04/03/17 00:00 98.0 59 18 176/74 98 04/02/17 20:00 97.7 49 18 194/88 99 04/02/17 19:45 Room Air 04/02/17 16:09 97.6 51 18 175/97 100 04/02/17 15:25 44 04/02/17 12:09 97.8 43 18 167/79 99 04/02/17 11:39 99 Room Air I/O 04/02/17 04/02/17 04/02/17 04/03/17 04/03/17 04/03/17 07:00 15:00 23:00 07:00 15:00 23:00 Intake Total 0 ml 360 ml 240 ml 120 ml Output Total 0 ml Balance 0 ml 360 ml 240 ml 120 ml Intake Oral 0 ml 360 ml 240 ml 120 ml IV Total 0 ml Output Urine Total 0 ml # Voids 3 2 2 # Bowel Movements 0 1 1 0 Result Diagram: 04/01/17 0753 04/01/17 0753 Imaging Last Impressions Myocardial Perfusion Scan Nuc Med 04/02/17 0000 Signed Impressions: Service Date/Time: Sunday, April 02, 2017 14:23 - CONCLUSION: 1. Global hypokinesis with left ventricular ejection fraction equaling 39%%. 2. No fixed or reversible defects to suggest infarct or ischemia. RISK CATEGORY: Intermediate risk (1 - 3%% annual mortality rate) Ck Hall MD Chest X-Ray 03/31/17 1052 Signed Impressions: Service Date/Time: March 11:05 - CONCLUSION: 1. Minimal basilar atelectasis. Elevated left hemidiaphragm. No focal consolidation or effusion. Nelson Stafford MD Objective Remarks GENERAL: This is a well-nourished, well-developed patient, in no apparent distress. NECK: Trachea midline. No JVD or lymphadenopathy. Supple, nontender, no meningeal signs. CARDIOVASCULAR: Bradycardic without murmurs, gallops, or rubs. RESPIRATORY: Clear to auscultation. Breath sounds equal bilaterally. No wheezes , rales, or rhonchi. GASTROINTESTINAL: Abdomen soft, non-tender, nondistended. No hepato-splenomegaly , or palpable masses. No guarding. MUSCULOSKELETAL: Extremities without clubbing, cyanosis, or edema. No joint tenderness, effusion, or edema noted. NEUROLOGICAL: Awake and alert. Cranial nerves II through XII intact. Motor and sensory grossly within normal limits. Five out of 5 muscle strength in all muscle groups. Normal speech. PSYCH: Mood and affect appropriate. A/P Assessment and Plan Symptomatic Sinus bradycardia with sob and lightheadedness with ambulation HR has been in the high 30s. The pt denies any symptoms. [facility] Troponin negative. No ischemia changes on EKG. CXR unremarkable. Not on any AV vianney blocking medications. - continue to monitor on telemetry. - trend troponins neg 2D ECHO normal EF - cardiology consult, seen by Dr Stafford, appreciate recommendations. Had lexiscan reviewed with Dr Stafford, recommends monitoring the patient over weekend, holter monitor , Dr Yanni CHILD will evaluate patient on Tuesday Accelerated hypertension, resolving. The patient denies any history of hypertension. - Vasotec as needed. - Start lisinopril as the patient has a history of diabetes and chronic kidney disease. Increased lisinopril to 10 mg op daily . Monitor BP and adjust meds as need. CKD Unsure of baseline. - avoid nephrotoxic agents. Nicotine abuse The pt smokes a half pack daily. - cessation instruction. - continue nicotine patch. DM diet controlled The pt says he is no longer on meds for diabetes. - follow glucose and start sliding scale if needed. Leg pain/ Weakness The patient endorses chronic leg pain and has been having difficulty ambulating. He uses a cane. - Physical therapy evaluation. - Tylenol as needed. Anemia Unsure of baseline. Likely secondary to renal disease. H/H stable - Follow CBC. PPx: Heparin Code Status Full Discussed Condition With Patient, nurse DC plan: Monitor patient on holter monitor, Dr Yanni CHILD to see the patien ton Tuesday and decide if needs PM. Seema Sorto MD Apr 03, 2017 10:33
[2017-04-03] MEDS ORDERED: LISINOPRIL 5 MG TAB PO ONE (10:45)
--- NOTE | 2017-04-03 11:19 | PD.CARD.PN ---
Subjective Subjective Remarks No overnight events Objective Medications Current Medications Medications (Trade) Dose Ordered Sig/Donny Route Start Time Stop Time Status Last Admin (Aspirin Chew) 81 mg DAILY CHEW 04/01/17 09:00 04/03/17 09:37 (Surfak) 240 mg DAILY PO 04/01/17 09:00 04/03/17 09:37 (Ferrous Sulfate) 325 mg DAILY PO 04/01/17 09:00 04/03/17 09:37 (Protonix) 20 mg DAILY PO 04/01/17 09:00 04/03/17 09:37 (Lipitor) 40 mg DAILY PO 04/01/17 09:00 04/03/17 09:37 (Effexor Xr) 75 mg DAILY PO 04/01/17 09:00 04/03/17 09:37 (NS Flush) 2 ml UNSCH PRN IV FLUSH 03/31/17 13:15 (NS Flush) 2 ml BID IV FLUSH 03/31/17 21:00 04/03/17 09:38 (Tylenol) 650 mg Q4H PRN PO 03/31/17 13:15 (Heparin Inj) 5,000 units Q8H SQ 03/31/17 14:00 04/03/17 05:03 (Tylenol) 650 mg Q6H PRN PO 03/31/17 13:15 (Narcan Inj) 0.4 mg UNSCH PRN IV 03/31/17 13:15 (Flomax) 0.4 mg DAILY PO 04/01/17 09:00 04/03/17 09:37 (Habitrol 14 Mg Patch.24 Hr) 1 patch DAILY T-DERMAL 03/31/17 14:00 04/03/17 09:37 Miscellaneous Information 1 DAILY T-DERMAL 04/01/17 09:00 04/03/17 09:00 (Melatonin) 5 mg HS PRN PO 03/31/17 21:00 04/01/17 22:08 (Tears Naturale Opth Soln) 1 drop Q4H PRN LEFT EYE 03/31/17 13:30 (Vasotec Inj) 1.25 mg Q6H PRN IV PUSH 03/31/17 13:30 04/02/17 20:32 (Prinivil) 10 mg DAILY PO 04/04/17 09:00 Vital Signs / I&O Vital Signs Date Time Temp Pulse Resp B/P Pulse Ox O2 Delivery O2 Flow Rate FiO2 04/03/17 11:09 97 Room Air 04/03/17 08:00 98.3 45 18 186/83 97 04/03/17 04:00 98.1 60 18 171/79 98 04/03/17 00:00 98.0 59 18 176/74 98 04/02/17 20:00 97.7 49 18 194/88 99 04/02/17 19:45 Room Air 04/02/17 16:09 97.6 51 18 175/97 100 04/02/17 15:25 44 04/02/17 12:09 97.8 43 18 167/79 99 04/02/17 11:39 99 Room Air I/O 04/02/17 04/02/17 04/02/17 04/03/17 04/03/17 04/03/17 07:00 15:00 23:00 07:00 15:00 23:00 Intake Total 0 ml 360 ml 240 ml 120 ml Output Total 0 ml Balance 0 ml 360 ml 240 ml 120 ml Intake Oral 0 ml 360 ml 240 ml 120 ml IV Total 0 ml Output Urine Total 0 ml # Voids 3 2 2 # Bowel Movements 0 1 1 0 Physical Exam GENERAL: Well-nourished, well-developed patient. SKIN: Warm and dry. HEAD: Normocephalic. EYES: No scleral icterus. No injection or drainage. NECK: Supple, trachea midline. No JVD or lymphadenopathy. CARDIOVASCULAR: Regular rate and rhythm without murmurs, gallops, or rubs. RESPIRATORY: Breath sounds equal bilaterally. No accessory muscle use. GASTROINTESTINAL: Abdomen soft, non-tender, nondistended. EXTREMITIES: No cyanosis, or edema. NEUROLOGICAL: Awake, alert, and oriented x 3. Non-focal. Imaging Last Impressions Myocardial Perfusion Scan Nuc Med 04/02/17 0000 Signed Impressions: Service Date/Time: Sunday, April 02, 2017 14:23 - CONCLUSION: 1. Global hypokinesis with left ventricular ejection fraction equaling 39%%. 2. No fixed or reversible defects to suggest infarct or ischemia. RISK CATEGORY: Intermediate risk (1 - 3%% annual mortality rate) Ck Hall MD Chest X-Ray 03/31/17 1052 Signed Impressions: Service Date/Time: March 11:05 - CONCLUSION: 1. Minimal basilar atelectasis. Elevated left hemidiaphragm. No focal consolidation or effusion. Nelson Stafford MD Assessment and Plan Problem List: (1) Bradycardia, sinus, persistent, severe Assessment and Plan: Symptomatic Bradycardia Feels tired and fatigue with walking. ECHO and MPI results noted, fixed defect without evidence of ischemia. Will consult EP Dr. Liao for possible PPM evaluation Sandeep Sanford MD Apr 03, 2017 11:19
[2017-04-03] MEDS: ENALAPRILAT 1.25 MG/ML VIAL IV PUSH PRN ×2 (12:36→21:55)
[2017-04-04] VITALS (8 sets, daily range): BP systolic 152–197; BP diastolic 63–89; PULSE 43–66; RESP 16–20; TEMP 97.3–98.1; O2SAT 98–99
[2017-04-04] MEDS: HEPARIN SODIUM - SQ 10,000 UNITS/ML VIAL SQ SCH ×2 (05:03→22:00)
[2017-04-04 08:38] LABS: AUTOMATED NEUTROPHIL # 1.9 TH/MM3 (1.8-7.7); BASOPHIL % 0.4 % (0.0-2.0); EOSINOPHIL # 0.1 TH/MM3 (0-0.4); EOSINOPHIL % 1.6 % (0.0-4.0); HEMATOCRIT 34.9 % (39.0-51.0); HEMO FLAGS DIFF FINAL; LYMPH % 39.6 % (9.0-44.0); LYMPHOCYTE # 1.5 TH/MM3 (1.0-4.8); MEAN CELL VOLUME 92.6 FL (80.0-100.0); MEAN CORPUSCULAR HEMOGLOBIN 29.9 PG (27.0-34.0); MEAN CORPUSCULAR HGB CONC 32.3 % (32.0-36.0); NEUT % 48.4 % (16.0-70.0); PLATELET COUNT 139 TH/MM3 (150-450); RED BLOOD COUNT 3.78 MIL/MM3 (4.50-5.90); RED CELL DISTRIBUTION WIDTH 12.6 % (11.6-17.2); WHITE BLOOD COUNT 3.9 TH/MM3 (4.0-11.0)
[2017-04-04 08:42] LABS: BICARBONATE 23.7 MEQ/L (21.0-32.0); MAGNESIUM 1.7 MG/DL (1.5-2.5); POTASSIUM 4.2 MEQ/L (3.5-5.1)
[2017-04-04] MEDS: SODIUM CHLORIDE 0.9% FLUSH 10 ML FLUSH IV FLUSH SCH ×2 (09:00→21:00)
[2017-04-04] MEDS: REMOVE OLD PATCH T-DERMAL SCH (09:00)
[2017-04-04] MEDS ORDERED: LISINOPRIL 5 MG TAB PO SCH (09:00)
[2017-04-04] MEDS: FERROUS SULFATE 325 MG (65 MG ELEMENTAL IRON) TAB PO SCH (11:04)
[2017-04-04] MEDS: VENLAFAXINE HCL XR 75 MG CAP PO SCH (11:04)
[2017-04-04] MEDS: ASPIRIN 81 MG CHEW TAB CHEW SCH (11:04)
[2017-04-04] MEDS: TAMSULOSIN HCL 0.4 MG CAP PO SCH (11:05)
[2017-04-04] MEDS: ATORVASTATIN 40 MG TAB PO SCH (11:05)
[2017-04-04] MEDS: PANTOPRAZOLE SOD 20 MG DELAYED RELEASE TAB PO SCH (11:05)
[2017-04-04] MEDS: LISINOPRIL 20 MG TAB PO SCH (11:05)
[2017-04-04] MEDS: NICOTINE 14 MG/24 HR PATCH T-DERMAL SCH (11:06)
[2017-04-04] MEDS: DOCUSATE CALCIUM 240 MG CAP PO SCH (11:06)
--- NOTE | 2017-04-04 12:56 | HHI.PR ---
Subjective Remarks Patient feels well. Decision pacemaker pending. He wishes to follow recommendations of the pacemaker is recommended he will stay for placement of the pacemaker. If no pacemaker is recommended he is interested in discharge. Objective Vital Signs Date Time Temp Pulse Resp B/P Pulse Ox O2 Delivery O2 Flow Rate FiO2 04/04/17 08:00 97.8 58 18 152/70 98 04/04/17 04:00 97.3 61 18 163/77 98 04/04/17 00:00 97.6 59 18 166/77 98 04/03/17 20:30 Room Air 04/03/17 20:22 75 04/03/17 20:00 98.1 63 18 180/89 98 04/03/17 16:00 98.5 64 18 182/88 97 I/O 04/03/17 04/03/17 04/03/17 04/04/17 04/04/17 04/04/17 07:00 15:00 23:00 07:00 15:00 23:00 Intake Total 120 ml 240 ml 120 ml Balance 120 ml 240 ml 120 ml Intake Oral 120 ml 240 ml 120 ml IV Total 0 ml # Voids 2 2 2 # Bowel Movements 0 1 0 Result Diagram: 04/04/17 0802 04/04/17 0802 Objective Remarks GENERAL: NAD, A&Ox3 HEAD: Normocephalic. NECK: Supple, trachea midline. No lymphadenopathy. EYES: No scleral icterus. No injection or drainage. CARDIOVASCULAR: Regular rhythm without murmurs, gallops, or rubs. Mild bradycardia RESPIRATORY: Breath sounds equal bilaterally. No accessory muscle use. GASTROINTESTINAL: Abdomen soft, non-tender, nondistended. MUSCULOSKELETAL: No cyanosis, or edema. SKIN: Warm and dry. NEURO: No focal neurological deficitis. Medications and IVs Administered Medications Medications (Trade) Dose Ordered Sig/Donny Route PRN Reason Start Time Stop Time Status Last Admin Dose Admin Aspirin (Aspirin Chew) 81 mg DAILY CHEW 04/01/17 09:00 04/04/17 11:04 Docusate Calcium (Surfak) 240 mg DAILY PO 04/01/17 09:00 04/04/17 11:06 Ferrous Sulfate (Ferrous Sulfate) 325 mg DAILY PO 04/01/17 09:00 04/04/17 11:04 Pantoprazole Sodium (Protonix) 20 mg DAILY PO 04/01/17 09:00 04/04/17 11:05 Atorvastatin Calcium (Lipitor) 40 mg DAILY PO 04/01/17 09:00 04/04/17 11:05 Venlafaxine HCl (Effexor Xr) 75 mg DAILY PO 04/01/17 09:00 04/04/17 11:04 Sodium Chloride (NS Flush) 2 ml BID IV FLUSH 03/31/17 21:00 04/04/17 09:00 Heparin Sodium (Porcine) (Heparin Inj) 5,000 units Q8H SQ 03/31/17 14:00 04/04/17 05:03 Tamsulosin HCl (Flomax) 0.4 mg DAILY PO 04/01/17 09:00 04/04/17 11:05 Nicotine (Habitrol 14 Mg Patch.24 Hr) 1 patch DAILY T-DERMAL 03/31/17 14:00 04/04/17 11:06 Miscellaneous Information 1 DAILY T-DERMAL 04/01/17 09:00 04/04/17 09:00 Melatonin (Melatonin) 5 mg HS PRN PO Insomnia 03/31/17 21:00 04/01/17 22:08 Enalaprilat (Vasotec Inj) 1.25 mg Q6H PRN IV PUSH SBP> OR = 180, DBP> OR = 100 03/31/17 13:30 04/03/17 21:55 Lisinopril (Prinivil) 20 mg DAILY PO 04/04/17 09:00 04/04/17 11:05 A/P Problem List: (1) Bradycardia, sinus, persistent, severe ICD Code: R00.1 (2) Hypertension ICD Code: I10 Assessment and Plan Assessment and Plan 82-year-old male admitted with symptom orthostatic bradycardia Symptomatic bradycardia Heart rate is remaining in the 40s and 50s on average, since yesterday Cardiology following Cardiac torch cutter has been consulted Pacemaker versus medical management Hypertension Resolved Continue blood pressure treatments (lisinopril) Follow blood pressures CKD Follow renal function Nicotine abuse Baseline appears to be approximately 2.0 regarding creatinine Nicotine dependence Nicotine patch Patient counseled to quit DM diet controlled Follow blood sugars Diabetic diet Leg pain/ Weakness (chronic) Physical therapy Anemia Follow CBC Stable thus far DVT prophylaxis Heparin Code Status Full Discharge planning Patient will stay if pacemaker is being placed Discharge Camby considered if no pacemaker will be placed Shay Cortes MD Apr 04, 2017 12:56 pm
--- NOTE | 2017-04-04 13:49 | MB ---
cc: HANY LINCOLN M.D. DATE OF CONSULTATION: 04/04/2017 REASON FOR CONSULTATION Symptomatic bradycardia for pacemaker insertion. HISTORY OF PRESENT ILLNESS Mr. Perdue is a 82-year-old -[place] gentleman with history of diabetes mellitus, high blood pressure, chronic kidney disease, was referred on Tuesday to the ER by the [facility] due to slow heart rate. The gentleman was having shortness of breath and dizziness on activity. Heart rate was in the 30s. He was evaluated by Dr. Stafford. Normal ejection fraction. I was consulted for evaluation and management. The chart was reviewed. The patient was evaluated. ALLERGIES None reported. SOCIAL HISTORY The patient still smokes half-a-pack of cigarettes a day. FAMILY HISTORY Noncontributory to his current medical condition. MEDICATIONS Currently: 1. Acetaminophen. 2. Aspirin. 3. Lipitor. 4. Ferrous sulfate. 5. Lisinopril. 6. Protonix. 7. Flomax. 8. Effexor. REVIEW OF SYSTEMS Currently the patient refers no chest pain, no chest discomfort. He has some dizziness but no fever. PHYSICAL EXAMINATION GENERAL: Alert, fully oriented. VITAL SIGNS: His blood pressure is 162/70, pulse 58, respiratory 18. LUNGS: Ventilated. CARDIOVASCULAR: S1-S2, no gallop. No murmur. ABDOMEN: Soft. No mass. No bruit. EXTREMITIES: Showed no edema. ELECTROCARDIOGRAM Sinus rhythm, sinus waldo, no acute ST and T-wave changes. LABORATORY DATA Hemoglobin is 11.3, white blood cell 3.9, potassium 4.2, creatinine 2.03, troponin less than 0.02. TSH 2.01. ASSESSMENT AND RECOMMENDATIONS Mr. Perdue apparently has symptomatic bradycardia. He has dizziness on activity and near syncope. Heart rate dropped in the 30s. He is on no negative chronotropic medication. The gentleman will benefit of a permanent pacemaker insertion. The risks, the nature and the benefit of the procedure was clearly stated to him and his daughter. At this point the daughter apparently [facility] a [facility]. I advised her to request the patient to be discharged and go to the [facility] for followup. She called back, she wants to talk again with her dad and will make a decision in the afternoon. I will be available on a p.r.n. basis. MD SCOTT Chacon/HALEY /11:51 AM /1:25 PM
[2017-04-05] VITALS (7 sets, daily range): BP systolic 142–180; BP diastolic 67–90; PULSE 55–71; RESP 16–20; TEMP 97.6–98.2; O2SAT 98–99
[2017-04-05] MEDS: HEPARIN SODIUM - SQ 10,000 UNITS/ML VIAL SQ SCH ×3 (06:00→22:09)
[2017-04-05] MEDS: REMOVE OLD PATCH T-DERMAL SCH (09:00)
[2017-04-05] MEDS: ATORVASTATIN 40 MG TAB PO SCH (09:03)
[2017-04-05] MEDS: LISINOPRIL 20 MG TAB PO SCH (09:03)
[2017-04-05] MEDS: TAMSULOSIN HCL 0.4 MG CAP PO SCH (09:04)
[2017-04-05] MEDS: VENLAFAXINE HCL XR 75 MG CAP PO SCH (09:04)
[2017-04-05] MEDS: FERROUS SULFATE 325 MG (65 MG ELEMENTAL IRON) TAB PO SCH (09:04)
[2017-04-05] MEDS: ASPIRIN 81 MG CHEW TAB CHEW SCH (09:04)
[2017-04-05] MEDS: PANTOPRAZOLE SOD 20 MG DELAYED RELEASE TAB PO SCH (09:04)
[2017-04-05] MEDS: DOCUSATE CALCIUM 240 MG CAP PO SCH (09:09)
[2017-04-05] MEDS: SODIUM CHLORIDE 0.9% FLUSH 10 ML FLUSH IV FLUSH SCH ×2 (09:09→21:00)
[2017-04-05] MEDS: NICOTINE 14 MG/24 HR PATCH T-DERMAL SCH (09:11)
[2017-04-05 10:01] LABS: HEMATOCRIT 36.6 % (39.0-51.0); MEAN CELL VOLUME 91.9 FL (80.0-100.0); MEAN CORPUSCULAR HEMOGLOBIN 29.6 PG (27.0-34.0); MEAN CORPUSCULAR HGB CONC 32.2 % (32.0-36.0); PLATELET COUNT 153 TH/MM3 (150-450); RED BLOOD COUNT 3.98 MIL/MM3 (4.50-5.90); RED CELL DISTRIBUTION WIDTH 12.9 % (11.6-17.2); REVIEW FLAG FINAL; WHITE BLOOD COUNT 4.4 TH/MM3 (4.0-11.0)
--- NOTE | 2017-04-05 10:26 | HHI.PR ---
Subjective Remarks Recurrent episodes of bradycardia remain. Patient was admitted due to a prolonged episode of bradycardia with symptoms. Sick Sinus Syndrome criteria present. Patient has been recommended for pacemaker placement. Patient is agreeable with pacemaker placement. Objective Vital Signs Date Time Temp Pulse Resp B/P Pulse Ox O2 Delivery O2 Flow Rate FiO2 04/05/17 08:00 98.2 63 20 149/67 98 04/05/17 05:32 97.6 55 16 142/67 98 04/04/17 23:37 98.1 64 16 152/63 99 04/04/17 21:11 Room Air 04/04/17 21:00 97.9 61 16 159/74 99 04/04/17 19:54 66 04/04/17 16:00 98.0 63 20 189/89 98 04/04/17 12:00 97.5 43 20 197/82 98 I/O 04/04/17 04/04/17 04/04/17 04/05/17 04/05/17 04/05/17 07:00 15:00 23:00 07:00 15:00 23:00 Intake Total 120 ml 360 ml 240 ml 0 ml Balance 120 ml 360 ml 240 ml 0 ml Intake Oral 120 ml 360 ml 240 ml 0 ml # Voids 2 2 3 5 # Bowel Movements 0 1 0 1 Result Diagram: 04/05/17 0843 04/04/17 0802 Objective Remarks GENERAL: NAD, A&Ox3 HEAD: Normocephalic. NECK: Supple, trachea midline. No lymphadenopathy. EYES: No scleral icterus. No injection or drainage. CARDIOVASCULAR: Regular rhythm without murmurs, gallops, or rubs. Mild bradycardia RESPIRATORY: Breath sounds equal bilaterally. No accessory muscle use. GASTROINTESTINAL: Abdomen soft, non-tender, nondistended. MUSCULOSKELETAL: No cyanosis, or edema. SKIN: Warm and dry. NEURO: No focal neurological deficitis. A/P Problem List: (1) Bradycardia, sinus, persistent, severe ICD Code: R00.1 (2) Hypertension ICD Code: I10 Assessment and Plan Assessment and Plan 82-year-old male admitted with symptom orthostatic bradycardia Symptomatic bradycardia Sick Sinus Syndrome Heart rate is remaining in the 40s and 50s on average, since yesterday, intermittant bradycardia to the 30's Cardiology following Cardiac it security specialist following Pacemake 6 sinus syndromer planned Patient agrees with the plan for pacemaker placement Hypertension Resolved Continue blood pressure treatments (lisinopril) Follow blood pressures CKD Follow renal function Nicotine abuse Baseline appears to be approximately 2.0 regarding creatinine Nicotine dependence Nicotine patch Patient counseled to quit DM diet controlled Follow blood sugars Diabetic diet Leg pain/ Weakness (chronic) Physical therapy Anemia Follow CBC Stable thus far DVT prophylaxis Heparin Code Status Full Discharge planning Patient will stay if pacemaker is being placed Discharge Camby considered if no pacemaker will be placed Shay Cortes MD Apr 05, 2017 10:26
[2017-04-05 10:51] LABS: BICARBONATE 20.2 MEQ/L (21.0-32.0); POTASSIUM 4.4 MEQ/L (3.5-5.1)
[2017-04-06] VITALS (7 sets, daily range): BP systolic 134–172; BP diastolic 61–79; PULSE 59–72; RESP 16–18; TEMP 97.8–98.5; O2SAT 97–99
[2017-04-06] MEDS: HEPARIN SODIUM - SQ 10,000 UNITS/ML VIAL SQ SCH ×3 (06:00→21:10)
[2017-04-06] MEDS: DOCUSATE CALCIUM 240 MG CAP PO SCH (09:08)
[2017-04-06] MEDS: VENLAFAXINE HCL XR 75 MG CAP PO SCH (09:08)
[2017-04-06] MEDS: ASPIRIN 81 MG CHEW TAB CHEW SCH (09:08)
[2017-04-06] MEDS: FERROUS SULFATE 325 MG (65 MG ELEMENTAL IRON) TAB PO SCH (09:08)
[2017-04-06] MEDS: PANTOPRAZOLE SOD 20 MG DELAYED RELEASE TAB PO SCH (09:08)
[2017-04-06] MEDS: ATORVASTATIN 40 MG TAB PO SCH (09:08)
[2017-04-06] MEDS: SODIUM CHLORIDE 0.9% FLUSH 10 ML FLUSH IV FLUSH SCH ×2 (09:08→21:05)
[2017-04-06] MEDS: LISINOPRIL 20 MG TAB PO SCH (09:08)
[2017-04-06] MEDS: TAMSULOSIN HCL 0.4 MG CAP PO SCH (09:08)
[2017-04-06] MEDS: REMOVE OLD PATCH T-DERMAL SCH (09:09)
[2017-04-06] MEDS: NICOTINE 14 MG/24 HR PATCH T-DERMAL SCH (09:09)
--- NOTE | 2017-04-06 14:05 | HHI.PR ---
Subjective Remarks Patient is agreeable to pacemaker. Cardiac biofuels production technician as recommended pacemaker. No new complaints from the patient. Objective Vital Signs Date Time Temp Pulse Resp B/P Pulse Ox O2 Delivery O2 Flow Rate FiO2 04/06/17 08:00 97.8 62 18 134/61 97 04/06/17 04:00 97.8 69 18 136/68 98 04/06/17 00:00 98.0 69 16 169/77 98 04/05/17 20:16 71 04/05/17 20:09 Room Air 04/05/17 20:00 98.1 71 16 162/78 99 04/05/17 17:10 162/88 04/05/17 16:00 98.2 55 18 180/90 99 I/O 04/05/17 04/05/17 04/05/17 04/06/17 04/06/17 04/06/17 07:00 15:00 23:00 07:00 15:00 23:00 Intake Total 0 ml 360 ml 0 ml 0 ml Balance 0 ml 360 ml 0 ml 0 ml Intake Oral 0 ml 360 ml 0 ml 0 ml # Voids 5 3 0 1 # Bowel Movements 1 1 0 0 Result Diagram: 04/05/1743 04/05/17 0843 Objective Remarks GENERAL: NAD, A&Ox3 HEAD: Normocephalic. NECK: Supple, trachea midline. No lymphadenopathy. EYES: No scleral icterus. No injection or drainage. CARDIOVASCULAR: Regular rhythm without murmurs, gallops, or rubs. Mild bradycardia RESPIRATORY: Breath sounds equal bilaterally. No accessory muscle use. GASTROINTESTINAL: Abdomen soft, non-tender, nondistended. MUSCULOSKELETAL: No cyanosis, or edema. SKIN: Warm and dry. NEURO: No focal neurological deficitis. A/P Problem List: (1) Bradycardia, sinus, persistent, severe ICD Code: R00.1 (2) Hypertension ICD Code: I10 Assessment and Plan Assessment and Plan 82-year-old male admitted with symptom orthostatic bradycardia secondary possibly to sick sinus syndrome. Pacemaker has been recommended. Patient is agreeable to pacemaker. Follow on telemetry. Symptomatic bradycardia Sick Sinus Syndrome Heart rate is remaining in the 40s and 50s on average, since yesterday, intermittant bradycardia to the 30's Cardiology following Cardiac biofuels production technician following Pacemake 6 sinus syndromer planned Patient agrees with the plan for pacemaker placement Hypertension Resolved Continue blood pressure treatments (lisinopril) Follow blood pressures CKD Follow renal function Nicotine abuse Baseline appears to be approximately 2.0 regarding creatinine Nicotine dependence Nicotine patch Patient counseled to quit DM diet controlled Follow blood sugars Diabetic diet Leg pain/ Weakness (chronic) Physical therapy Anemia Follow CBC Stable thus far DVT prophylaxis Heparin Code Status Full Discharge planning Patient will stay if pacemaker is being placed Discharge Camby considered if no pacemaker will be placed Shay Cortes MD Apr 06, 2017 14:05
[2017-04-06] MEDS ORDERED: VANCOMYCIN INJ 1,000 MG in SODIUM CHLOR 0.9% 250 ML INJ 250 ML IV SCH (18:00)
[2017-04-06] MEDS ORDERED: CHLORHEXIDINE GLUCONATE 2 % 1 PACK (2 CLOTHS) TOP SCH (18:00)
[2017-04-06] MEDS ORDERED: ceFAZolin 2 GM PREMIX 50 ML IV SCH (18:00)
[2017-04-06] MEDS ORDERED: POVIDONE IODINE 5% (ANTISEPSIS KIT) 4 APPLICATIONS EACH NARE SCH (18:00)
[2017-04-06] MEDS ORDERED: MUPIROCIN 2% OINT 1 APPLIC/GM SYR NASAL SCH (18:00)
--- NOTE | 2017-04-06 18:02 | PD.CARD.PN ---
Subjective Subjective Remarks No new complaints Objective Medications Current Medications Medications (Trade) Dose Ordered Sig/Donny Route Start Time Stop Time Status Last Admin (Aspirin Chew) 81 mg DAILY CHEW 04/01/17 09:00 04/06/17 09:08 (Surfak) 240 mg DAILY PO 04/01/17 09:00 04/06/17 09:08 (Ferrous Sulfate) 325 mg DAILY PO 04/01/17 09:00 04/06/17 09:08 (Protonix) 20 mg DAILY PO 04/01/17 09:00 04/06/17 09:08 (Lipitor) 40 mg DAILY PO 04/01/17 09:00 04/06/17 09:08 (Effexor Xr) 75 mg DAILY PO 04/01/17 09:00 04/06/17 09:08 (NS Flush) 2 ml UNSCH PRN IV FLUSH 03/31/17 13:15 (NS Flush) 2 ml BID IV FLUSH 03/31/17 21:00 04/06/17 09:08 (Tylenol) 650 mg Q4H PRN PO 03/31/17 13:15 (Heparin Inj) 5,000 units Q8H SQ 03/31/17 14:00 04/06/17 14:53 (Tylenol) 650 mg Q6H PRN PO 03/31/17 13:15 (Narcan Inj) 0.4 mg UNSCH PRN IV 03/31/17 13:15 (Flomax) 0.4 mg DAILY PO 04/01/17 09:00 04/06/17 09:08 (Habitrol 14 Mg Patch.24 Hr) 1 patch DAILY T-DERMAL 03/31/17 14:00 04/06/17 09:09 Miscellaneous Information 1 DAILY T-DERMAL 04/01/17 09:00 04/06/17 09:09 (Melatonin) 5 mg HS PRN PO 03/31/17 21:00 04/01/17 22:08 (Tears Naturale Opth Soln) 1 drop Q4H PRN LEFT EYE 03/31/17 13:30 (Vasotec Inj) 1.25 mg Q6H PRN IV PUSH 03/31/17 13:30 04/03/17 21:55 (Prinivil) 20 mg DAILY PO 04/04/17 09:00 04/06/17 09:08 Vital Signs / I&O Vital Signs Date Time Temp Pulse Resp B/P Pulse Ox O2 Delivery O2 Flow Rate FiO2 04/06/17 16:00 98.1 72 18 154/76 97 04/06/17 12:00 98.1 64 18 140/65 97 04/06/17 08:00 97.8 62 18 134/61 97 04/06/17 08:00 59 04/06/17 08:00 Room Air 04/06/17 04:00 97.8 69 18 136/68 98 04/06/17 00:00 98.0 69 16 169/77 98 04/05/17 20:16 71 04/05/17 20:09 Room Air 04/05/17 20:00 98.1 71 16 162/78 99 I/O 04/05/17 04/05/17 04/05/17 04/06/17 04/06/17 04/06/17 07:00 15:00 23:00 07:00 15:00 23:00 Intake Total 0 ml 360 ml 0 ml 0 ml Balance 0 ml 360 ml 0 ml 0 ml Intake Oral 0 ml 360 ml 0 ml 0 ml # Voids 5 3 0 1 2 # Bowel Movements 1 1 0 0 1 Physical Exam Alert Tele: sinus waldo seen in 30's Chest Clear CV S1S2 RR waldo Abd soft Ext ne edema Assessment and Plan Problem List: (1) Bradycardia, sinus, persistent, severe Assessment and Plan: Symptomatic. Informed consent for pacemaker. Risks discussed. Chest marked Gualberto Worley MD Apr 06, 2017 18:02
[2017-04-06] MEDS: SODIUM CHLOR 0.9% 1000 ML INJ 1,000 ML IV SCH (21:05)
[2017-04-06] MEDS ORDERED: INSULIN HUMAN REGULAR 1,000 UNITS/10 ML VIAL SQ PRN (23:15)
[2017-04-06] MEDS ORDERED: SODIUM CHLORID 0.9% 500 ML IV PRN (23:15)
[2017-04-06] MEDS ORDERED: LACTATED RINGER'S 1000 ML IV PRN (23:15)
--- NOTE | 2017-04-06 23:38 | HM ---
Date Performed: 04/05/2017 Time Performed: 15:27:00 HOOKUP DATE: 04/05/17 03:27:00 PM Tue ANALYSIS START TIME: 04/05/2017 3:32:00 PM ANALYSIS END TIME: 04/06/2017 3:36:00 PM PATIENT AGE: 82 PATIENT HEIGHT PATIENT WEIGHT DRUG LIST PATIENT DIAGNOSIS TEST NARRATIVE: The patient's average heart rate was 71 BPM. Heart rates greater than 120 B PM were noted < 1% of the time. Heart rates less than 50 BPM were noted 4% of the time. No pause s exceeding 2.0 seconds were noted. 08253 ventricular ectopics, which represented 23% of the tota l beat count, were noted. The highest ventricular ectopic frequency occurred from 07:00 PM to 08:00 PM Tue. During this time 1808 VE(s) occurred. [place] [address] isolated beat(s), as 92 couplet(s) and as 7 run(s). Some of the ventricular beats occurred in bigeminal cycle s. 6319 supraventricular ectopics, which represented 6% of the total beat count, were noted. The highest supraventricular ectopic frequency occurred from 12:00 AM to 01:00 AM Wed. During this time 805 SVE(s) occurred. Multiple episodes of ST depression (defined as -1.0 mm or more) were noted in channel 1. The maximum depression of -2.4 mm occurred at 12:59:47 PM Wed. Multiple episodes of ST depression (defined as -1.0 mm or more) were noted in channel 2. The maximum depression of -2.3 mm occurred at 12:59:47 PM Wed. Multiple episodes of ST depression (defined as -1.0 mm or more) wer e noted in channel 3. The maximum depression of -2.1 mm occurred at 10:17:59 PM Tue. TEST INTERPRETATION: Sinus rhythm PACS PVCS Signed by : Roman anton
[2017-04-07 04:52] VITALS: BP 129/63; PULSE 61; RESP 16; TEMP 97.9; O2SAT 98
[2017-04-07] MEDS ORDERED: VANCOMYCIN HCL 1000 MG VIAL ONE (07:09)
[2017-04-07] MEDS ORDERED: LIDOCAINE HCL 2% 50 ML VIAL ONE (07:09)
[2017-04-07] MEDS ORDERED: SODIUM CHLOR 0.9% 250 ML INJ 250 ML ONE (07:09)
[2017-04-07] MEDS ORDERED: ceFAZolin INJ 1,000 MG VIAL ONE (07:09)
[2017-04-07] MEDS ORDERED: VANCOMYCIN 500 MG VIAL ONE (07:09)
[2017-04-07] MEDS ORDERED: PROPOFOL 200 MG/20 ML AMP IV ONE (07:35)
[2017-04-07] MEDS ORDERED: MIDAZOLAM HCL 2 MG/2 ML VIAL ONE (07:38)
[2017-04-07 07:52] LABS: AUTOMATED NEUTROPHIL # 2.4 TH/MM3 (1.8-7.7); BASOPHIL % 0.5 % (0.0-2.0); EOSINOPHIL % 1.1 % (0.0-4.0); HEMATOCRIT 36.3 % (39.0-51.0); HEMO FLAGS DIFF FINAL; LYMPH % 28.7 % (9.0-44.0); LYMPHOCYTE # 1.1 TH/MM3 (1.0-4.8); MEAN CELL VOLUME 93.7 FL (80.0-100.0); MEAN CORPUSCULAR HEMOGLOBIN 29.1 PG (27.0-34.0); MEAN CORPUSCULAR HGB CONC 31.1 % (32.0-36.0); MONO % 9.5 % (0.0-8.0); NEUT % 60.2 % (16.0-70.0); PLATELET COUNT 125 TH/MM3 (150-450); RED BLOOD COUNT 3.87 MIL/MM3 (4.50-5.90); RED CELL DISTRIBUTION WIDTH 12.5 % (11.6-17.2); WHITE BLOOD COUNT 3.9 TH/MM3 (4.0-11.0)
[2017-04-07 08:15] LABS: BICARBONATE 22.1 MEQ/L (21.0-32.0); POTASSIUM 4.2 MEQ/L (3.5-5.1)
--- NOTE | 2017-04-07 09:13 | CATHPROC ---
[employer] HIS Report Study Information Study Number Admission Scheduled Start Study Start [id number] Mar 31 2017 12:45PM 04/06/2017 Apr 07 2017 7:02AM [place] Service Cardiac Pacer/ICD Admit Source Facility Department Other [facility] [address] Man Physician and Clinical Staff Initial Gualberto Long Bicycle Messenger Micheal Daniel,RT(R) Other Anesthesia, SOLUTION CONSULTANT Recorder Laura Hawkins,RN Scrub Gertrude De Jesus,TAMIKO Procedures Performed Procedure Lead Insertion Equipment Time Local Delivery Truck Driver Description Size Mfg Part Number Used/Scraped [id number] 08:05 [employer] INDUSTRIES SUTURE, STRIP PLUS 1/2" * Used *[id number] 08:05 MEDLINE PACER ADHESIVE, MASTISOL 2/3CC 2/3CC 0523-48 Used 08:05 [employer] PACER PICKERING, LIMB * 2530 *[id number] Used [id number] 08:05 [employer] PACER PACK, PACER CUSTOM * Used *[id number] 08:05 MEDLINE PACER PEN, SKIN DUAL W/ RULER * Used *[id number] 08:18 [employer] PACER SAFE SHEATH, FR7, 13CM FR 7 [id number] Used 08:27 [employer] PACER SAFE SHEATH, FR7, 13CM FR 7 [id number] Used 08:02 Needle Sponge Count 2 22 Used 08:02 Needle Sponge Count 3 3 Used 08:02 Needle Sponge Count 30 1 Used [id number] *[id number] SUTURE, 2-0 VICRYL [SH] ([id number]) SUTURE, 3-0 VICRYL [SH] ([id number]) SUTURE, 4-0 MONOCRYL [PS2] (Y496G) [id number] 08:05 [place] [employer],WARM AIR CCL * Used *[id number] [facility] PAD, ELECTROSURGICAL 08:05 * [id number] *[id number] Used SURGICAL GROUNDING ORANGE LEAD, CAPSURE FIX NOVUS, 4076-45CM 08:19 VITATRON [employer] 45CM Used 45CM *[id number] LEAD, CAPSURE FIX NOVUS, 4076-52CM 08:17 VITATRON [employer] 52CM Used 52CM *[id number] PACEMAKER, ADVISA DR MRI 08:38 [employer] OEA-DDDR [id number] Used SomaSCAN [id number] 08:05 [employer]. ELECTRODE, PRO-PADZ BIPHASIC * Used *[id number] Equipment Model, Serial, Lot Number and Expiration Data Description Model Number Serial Number Lot Number Expiration Date LEAD, CAPSURE FIX NOVUS, 45CM 4076-45CM [id number] 12-09-2018 LEAD, CAPSURE FIX NOVUS, 52CM 4076-52cm [id number] 01-10-2019 PACEMAKER, ADVISA DR PIPER A2DR01 [id number] 08-23-2018 SURESCAN Medication Medication Total Dose (Bolus/Oral) Medication Total Dosage/Unit 2% XYLOCAINE 50 mL Medications (Bolus/Oral) Medication Time Given Dosage/Unit Administered By Reason 2% XYLOCAINE 04/07/2017 8:14:32 AM 50 mL Anesthesia, SOLUTION CONSULTANT 50 mL 2% XYLOCAINE given in lab by Anesthesia, SOLUTION CONSULTANT in Left shoulder via Subcutaneous. Ordered by Gualberto Cassidy. left upper chest Medication (Drip) Medication Time Given Dosage/Unit Concentration/Unit Diluent (ml) Solution ANCEF 04/07/2017 8:00:00 AM 2 g 2 g ANCEF given in lab by Anesthesia, SOLUTION CONSULTANT via Peripheral IV. Ordered by Gualberto Worley. VANCOMYCIN DRIP 04/07/2017 8:00:10 AM 1 g 1 g VANCOMYCIN DRIP given in lab by Anesthesia, SOLUTION CONSULTANT via Peripheral IV. Ordered by Gualberto Worley. Initial Case Assessment Cardiovascular HR Rhythm Chest Pain 67 sr w/pvc 0 Edema Present Skin color Skin None Normal Warm Dry Circulatory - Right Pulses Dorsalis Pedis 1 Scale (0,1,2,3,4,d) Circulatory - Left Pulses Dorsalis Pedis 1 Scale (0,1,2,3,4,d) Neurological State Oriented to time-place- Alert Moves all extremities person Respiration - General Respiration Rate SpO2 (%) (B/min) 18 100 Final Case Assessment Cardiovascular HR Rhythm NIBP Chest Pain 60 SB 101/68 0 Edema Present Skin color Skin None Normal Warm Dry Circulatory - Right Pulses Dorsalis Pedis 1 Scale (0,1,2,3,4,d) Circulatory - Left Pulses Dorsalis Pedis 1 Scale (0,1,2,3,4,d) Neurological State Oriented to time-place- Alert Moves all extremities person Respiration - General Respiration Rate SpO2 (%) O2 (lpm) (B/min) 18 100 2 Chronological Log Time Study Chronological Log 7:35:10 Patient arrived via Bed. 7:35:15 Patient Name, D.O.B, / Armband Verified By R.N. 7:36:00 Patient has been NPO for More than 6Hrs. 7:36:15 Skin Breakdown- none per patient 7:58:43 Patient Warmer Placed on the Table. 7:58:47 Disposable Defibrillator Pads Placed On Patient. 7:58:50 Eben Prominences Protected 7:58:51 IV Warmer Connected To Patient. 7:58:55 A # 20 IV was noted in the Forearm (right). Grade = 0 7:59:07 A # 20 IV was noted in the Antecubital (left). Grade = 0 7:59:20 History and physical on the chart or being dictated. Assessment: Initial Case, HR=67 BPM, Rhythm=sr w/pvc, Chest Pain=0, Edema=None, Color=Normal, S kin = Warm, Dry Right Pulses: Barry Ped=1 7:59:22 Left Pulses: Barry Ped=1 Neurological: State=Alert, Ox3, MCWILLIAMS Respiration: Resp=18 B/min, VwZ9=193 % 8:00:00 2 g ANCEF given in lab by Anesthesia, SOLUTION CONSULTANT via Peripheral IV. Ordered by Gualberto Worley. 8:00:10 1 g VANCOMYCIN DRIP given in lab by Anesthesia, SOLUTION CONSULTANT via Peripheral IV. Ordered by Gualberto Worley. 8:00:28 Left Upper Chest Prepped Times Two. 8:00:46 Bovie ground pad applied to: right thigh 8:01:21 2% CHLORHEXIDINE GLUCONATE WASH AND NASAL SWIPE DONE PRIOR TO PROCEDURE. First Sponge And Instrument Count Done by Gertrude De Jesus RCIS. 8:01:24 Hypo's: 3, Sponges: 30, Bovie/scratch: 2 Sutures: 5, Blades: 2, Instruments: 26, Syveck Patches: ~SYVECK PATCH~ verified by Micheal Daniel Time Out. Correct patient, procedure, procedure equipment, site and side verified with physician present. Time 8:08:43 concurred by MD, individual staff and SOLUTION CONSULTANT. Time Out #2 - Consents verified, patient in correct position, all results are labled and display ed, safety precautions 8:08:47 taken, antibiotics administered. Time out concurred by MD, individual staff and SOLUTION CONSULTANT in procedur e 8:09:11 Case Start 50 mL 2% XYLOCAINE given in lab by Anesthesia, SOLUTION CONSULTANT in Left shoulder via Subcutaneous. Ordered Gualberto Ferro. 8:14:32 left upper chest 8:15:00 Surgical Incision Made. 8:15:01 A pocket was created at the L Upper Chest. 8:15:30 Vascular access was obtained in the Subclav. Vein (Lft. 8:15:33 Vascular access was obtained in the Subclav. Vein (Lft. 8:15:41 A SAFE SHEATH, FR7, 13CM FR 7 was advanced into the Subclav. Vein (Lft using the Modified Se ldinger technique. 8:16:28 A LEAD, CAPSURE FIX NOVUS, 52CM 52CM was inserted and positioned in the RV. 8:17:23 Lead placement verified under fluoroscopy 8:23:23 The RV lead impedance and threshold being tested. 8:24:29 The RV lead was sutured to the fascia. 8:26:46 A SAFE SHEATH, FR7, 13CM FR 7 was advanced into the Subclav. Vein (Lft using the Modified Se ldinger technique. 8:27:15 A LEAD, CAPSURE FIX NOVUS, 45CM 45CM was inserted and positioned in the RA. 8:28:10 Lead placement verified under fluoroscopy 8:28:40 The Atrial lead impedance and threshold is being tested. 8:30:26 The Atrial lead was sutured to the fascia. 8:39:22 A PACEMAKER, HIRAM LENZ OEA-DDDR was connected and placed in the pocket. 8:43:40 Pocket flushed with antibiotic solution SECOND Sponge And Instrument Count Done by Gertrude De Jesus RCIS. 8:45:31 Hypo's: 3, Sponges: 30, Bovie/scratch: 2 Sutures: 5, Blades: 2, Instruments: 26, Syveck Patches: ~SYVECK PATCH~ verified by Micheal Daniel 8:51:23 The pocket was closed. 8:51:58 Implant Procedure was performed. 8:52:07 A PPM Implant . (Dual) 8:52:30 Bedside Report will be given. 8:52:32 4 [facility] called. Spoke to [facility] CL[facility] FINAL Sponge And Instrument Count Done by Gertrude De Jesus RCIS. 9:02:57 Hypo's: 3, Sponges: 30, Bovie/scratch: 2 Sutures: 5, Blades: 2, Instruments: 26, Syveck Patches: ~SYVECK PATCH~ verified by Micheal Daniel 9:03:08 Steri-strips and a sterile dressing applied to site. 9:03:17 Case End 9:03:20 A sling was placed on the affected arm. Assessment: Final Case, HR=60 BPM, Rhythm=SB, WKKV=668/68 mmhg, Chest Pain=0, Edema=None, [place] r=Normal, Skin = Warm, Dry Right Pulses: Barry Ped=1 9:03:26 Left Pulses: Barry Ped=1 Neurological: State=Alert, Ox3, MCWILLIAMS Respiration: Resp=18 B/min, ZsG1=003 %, O2=2 lpm 9:03:30 Sterile dressing applied to site 9:03:31 No case complications noted. 9:03:32 Cine recording checked. 9:03:34 Bedside Report will be given. 9:03:36 Implantable Device card placed in patient's chart. 9:03:40 Defibrillator and ground pads removed. Skin intact. 9:15:42 Patient moved to [facility] End Study - Contrast Media Used In Study Contrast Total Opened (mL) Total Used (mL) Total Wasted (mL) Unspecified 0 0 0 End Study - Radiation Exposure Fluoro Time (minutes) 3.8 End Study - Patient Disposition Complications Transferred To Interventional Outcome No Telemetry Bed successful
[2017-04-07] MEDS ORDERED: BACITRACIN OINT 0.9 GM PKT TOP PRN (09:15)
--- NOTE | 2017-04-07 10:11 | RADRPT ---
EXAM DATE/TIME: 04/07/2017 09:38 [place] COMPARISON: CHEST SINGLE AP, March 31, 2017, 11:05. INDICATIONS : R/o pneumothorax. post pacemaker. MEDICAL HISTORY : Hypertension. Diabetes mellitus type II. Congestive heart failure. SURGICAL HISTORY : None. ENCOUNTER: Initial ACUITY: 4 - 6 days PAIN SCORE: 0/10 LOCATION: Bilateral chest FINDINGS: Pacemaker device is noted with control pack over the left chest. There is no evidence of pneumothorax or other complication of placement. Lungs are stable and grossly clear. No effusion present. Cardiac contour is satisfactory. Healed right clavicle fracture. CONCLUSION: Satisfactory appearance post pacemaker Bean Zaldivar MD on April 07, 2017 at 10:06 Board Certified Radiologist. This report was verified electronically.
[2017-04-07] MEDS: PANTOPRAZOLE SOD 20 MG DELAYED RELEASE TAB PO SCH (11:52)
[2017-04-07] MEDS: ASPIRIN 81 MG CHEW TAB CHEW SCH (11:52)
[2017-04-07] MEDS: NICOTINE 14 MG/24 HR PATCH T-DERMAL SCH (11:52)
[2017-04-07] MEDS: VENLAFAXINE HCL XR 75 MG CAP PO SCH (11:52)
[2017-04-07] MEDS: FERROUS SULFATE 325 MG (65 MG ELEMENTAL IRON) TAB PO SCH (11:52)
[2017-04-07] MEDS: ACETAMINOPHEN/CODEINE 300 MG/30 MG TAB PO PRN ×2 (11:53→20:47)
[2017-04-07] MEDS: LISINOPRIL 20 MG TAB PO SCH (11:53)
[2017-04-07] MEDS: DOCUSATE CALCIUM 240 MG CAP PO SCH (11:53)
[2017-04-07] MEDS: REMOVE OLD PATCH T-DERMAL SCH (11:53)
[2017-04-07] MEDS: ATORVASTATIN 40 MG TAB PO SCH (11:53)
[2017-04-07] MEDS: TAMSULOSIN HCL 0.4 MG CAP PO SCH (11:54)
[2017-04-07] MEDS: SODIUM CHLORIDE 0.9% FLUSH 10 ML FLUSH IV FLUSH SCH ×2 (11:54→20:47)
[2017-04-07 12:01] VITALS: BP 171/83; PULSE 63; RESP 20; TEMP 97.3; O2SAT 97
--- NOTE | 2017-04-07 15:12 | HHI.PR ---
Subjective Remarks Pacemaker placed this morning. Patient is doing well postop. Tentative discharge tomorrow if patient continues to do well. Objective Vital Signs Date Time Temp Pulse Resp B/P Pulse Ox O2 Delivery O2 Flow Rate FiO2 04/07/17 12:01 97.3 63 20 171/83 97 04/07/17 08:00 Room Air 04/07/17 04:52 97.9 61 16 129/63 98 04/06/17 23:45 98.0 64 16 140/63 99 04/06/17 20:00 98.5 65 18 172/79 99 04/06/17 16:00 98.1 72 18 154/76 97 I/O 04/06/17 04/06/17 04/06/17 04/07/17 04/07/17 04/07/17 07:00 15:00 23:00 07:00 15:00 23:00 Intake Total 0 ml 800 ml Output Total 0 ml Balance 0 ml 800 ml Intake Oral 0 ml 0 ml IV Total 800 ml Output Urine Total 0 ml # Voids 1 2 # Bowel Movements 0 1 0 Result Diagram: 04/07/1761904/07/17 0620 Objective Remarks GENERAL: NAD, A&Ox3 HEAD: Normocephalic. NECK: Supple, trachea midline. No lymphadenopathy. EYES: No scleral icterus. No injection or drainage. CARDIOVASCULAR: Regular rhythm without murmurs, gallops, or rubs. Mild bradycardia RESPIRATORY: Breath sounds equal bilaterally. No accessory muscle use. GASTROINTESTINAL: Abdomen soft, non-tender, nondistended. MUSCULOSKELETAL: No cyanosis, or edema. Left upper chest wound bandaged. SKIN: Warm and dry. NEURO: No focal neurological deficitis. A/P Problem List: (1) Bradycardia, sinus, persistent, severe ICD Code: R00.1 (2) Hypertension ICD Code: I10 Assessment and Plan Assessment and Plan 82-year-old male admitted with symptom orthostatic bradycardia secondary possibly to sick sinus syndrome. Patient now status post pacemaker placement. Follow on telemetry. Doing well postop. Expect discharge tomorrow. Symptomatic bradycardia Sick Sinus Syndrome Heart rate is remaining in the 40s and 50s on average, since yesterday, intermittant bradycardia to the 30's Cardiology following Cardiac poultry offal icer following Status post pacemaker placement. Hypertension Resolved Continue blood pressure treatments (lisinopril) Follow blood pressures CKD Follow renal function Nicotine abuse Baseline appears to be approximately 2.0 regarding creatinine Nicotine dependence Nicotine patch Patient counseled to quit DM diet controlled Follow blood sugars Diabetic diet Leg pain/ Weakness (chronic) Physical therapy Anemia Follow CBC Stable thus far DVT prophylaxis Heparin Code Status Full Discharge planning Patient will stay if pacemaker is being placed Discharge [place] considered if no pacemaker will be placed Shay Cortes MD Apr 07, 2017 15:12
[2017-04-07 16:00] VITALS: BP 120/60; PULSE 62; RESP 18; TEMP 97.8; O2SAT 97
[2017-04-07] MEDS: SODIUM CHLOR 0.9% 1000 ML INJ 1,000 ML IV SCH (20:00)
[2017-04-07 20:17] VITALS: PULSE 68
[2017-04-07 20:48] VITALS: BP 165/74; PULSE 77; RESP 16; TEMP 98.2; O2SAT 98
[2017-04-07 23:34] VITALS: BP 137/71; PULSE 72; RESP 16; TEMP 98.5; O2SAT 98
[2017-04-08] MEDS: SODIUM CHLOR 0.9% 1000 ML INJ 1,000 ML IV SCH ×2 (04:00→08:49)
[2017-04-08 04:49] VITALS: BP 126/60; PULSE 65; RESP 16; TEMP 97.9; O2SAT 98
[2017-04-08] MEDS: ACETAMINOPHEN/CODEINE 300 MG/30 MG TAB PO PRN (05:45)
[2017-04-08 08:00] VITALS: BP 140/65; PULSE 60; PULSE 85; RESP 18; TEMP 97.4; O2SAT 99
[2017-04-08] MEDS: TAMSULOSIN HCL 0.4 MG CAP PO SCH (08:48)
[2017-04-08] MEDS: FERROUS SULFATE 325 MG (65 MG ELEMENTAL IRON) TAB PO SCH (08:48)
[2017-04-08] MEDS: ATORVASTATIN 40 MG TAB PO SCH (08:48)
[2017-04-08] MEDS: PANTOPRAZOLE SOD 20 MG DELAYED RELEASE TAB PO SCH (08:48)
[2017-04-08] MEDS: DOCUSATE CALCIUM 240 MG CAP PO SCH (08:48)
[2017-04-08] MEDS: ASPIRIN 81 MG CHEW TAB CHEW SCH (08:48)
[2017-04-08] MEDS: NICOTINE 14 MG/24 HR PATCH T-DERMAL SCH (08:49)
[2017-04-08] MEDS: REMOVE OLD PATCH T-DERMAL SCH (08:49)
[2017-04-08] MEDS: VENLAFAXINE HCL XR 75 MG CAP PO SCH (08:49)
[2017-04-08] MEDS: LISINOPRIL 20 MG TAB PO SCH (08:49)
[2017-04-08] MEDS: SODIUM CHLORIDE 0.9% FLUSH 10 ML FLUSH IV FLUSH SCH (08:49)
--- NOTE | 2017-04-08 09:02 | PD.CARD.PN ---
Subjective Subjective Remarks no CV complaints. Mild soreness only Objective Medications Current Medications Medications (Trade) Dose Ordered Sig/Donny Route Start Time Stop Time Status Last Admin (Aspirin Chew) 81 mg DAILY CHEW 04/01/17 09:00 04/08/17 08:48 (Surfak) 240 mg DAILY PO 04/01/17 09:00 04/08/17 08:48 (Ferrous Sulfate) 325 mg DAILY PO 04/01/17 09:00 04/08/17 08:48 (Protonix) 20 mg DAILY PO 04/01/17 09:00 04/08/17 08:48 (Lipitor) 40 mg DAILY PO 04/01/17 09:00 04/08/17 08:48 (Effexor Xr) 75 mg DAILY PO 04/01/17 09:00 04/08/17 08:49 (NS Flush) 2 ml UNSCH PRN IV FLUSH 03/31/17 13:15 (NS Flush) 2 ml BID IV FLUSH 03/31/17 21:00 04/08/17 08:49 (Tylenol) 650 mg Q4H PRN PO 03/31/17 13:15 (Narcan Inj) 0.4 mg UNSCH PRN IV 03/31/17 13:15 (Flomax) 0.4 mg DAILY PO 04/01/17 09:00 04/08/17 08:48 (Habitrol 14 Mg Patch.24 Hr) 1 patch DAILY T-DERMAL 03/31/17 14:00 04/08/17 08:49 Miscellaneous Information 1 DAILY T-DERMAL 04/01/17 09:00 04/08/17 08:49 (Melatonin) 5 mg HS PRN PO 03/31/17 21:00 04/01/17 22:08 (Tears Naturale Opth Soln) 1 drop Q4H PRN LEFT EYE 03/31/17 13:30 (Vasotec Inj) 1.25 mg Q6H PRN IV PUSH 03/31/17 13:30 04/03/17 21:55 Lisinopril 20 mg 20 mg DAILY PO 04/04/17 09:00 04/08/17 08:49 Sodium Chloride 1,000 ml @ 125 mls/hr Q8H IV 04/07/17 20:00 04/06/17 21:05 Lactated Ringer's 1,000 ml @ 30 mls/hr Q24H PRN IV 04/06/17 23:15 04/09/17 23:14 (NS 500 ml Inj) 500 ml @ 30 mls/hr [id number] PRN IV 04/06/17 23:15 04/09/17 23:14 (Tylenol-Codeine #3) 1 tab Q4H PRN PO 04/07/17 09:15 04/08/17 05:45 (Bacitracin Oint Packet) 0.9 gm UNSCH PRN TOP 04/07/17 09:15 Vital Signs / I&O Vital Signs Date Time Temp Pulse Resp B/P Pulse Ox O2 Delivery O2 Flow Rate FiO2 04/08/17 07:01 18 04/08/17 04:49 97.9 65 16 126/60 98 04/07/17 23:34 98.5 72 16 137/71 98 04/07/17 20:48 98.2 77 16 165/74 98 04/07/17 20:45 Room Air 04/07/17 20:17 68 04/07/17 16:00 97.8 62 18 120/60 97 04/07/17 12:01 97.3 63 20 171/83 97 I/O 04/07/17 04/07/17 04/07/17 04/08/17 04/08/17 04/08/17 07:00 15:00 23:00 07:00 15:00 23:00 Intake Total 800 ml 240 ml 240 ml 240 ml 12 ml Output Total 0 ml Balance 800 ml 240 ml 240 ml 240 ml 12 ml Intake Oral 0 ml 240 ml 240 ml 240 ml IV Total 800 ml 12 ml Output Urine Total 0 ml # Voids 1 3 3 # Bowel Movements 0 1 0 1 Physical Exam Alert Tele: sinus/ apaced Chest Clear CV S1S2 RRR Abd soft Ext ne edema Pacer wound: looks great. No bleeding or hematoma Pacer function nl Imaging Last 48 hours Impressions Chest X-Ray 04/07/17 0000 Signed Impressions: Service Date/Time: March 09:38 - CONCLUSION: Satisfactory appearance post pacemaker Bean Zaldivar MD Assessment and Plan Problem List: (1) Bradycardia, sinus, persistent, severe (2) Pacemaker Assessment and Plan: Normal function. OK to shower starting tomorrow. No tub bath or immersion. Wound check my office 5 days. Assessment and Plan OK to [facility] Gualberto Worley MD Apr 08, 2017 09:02
[2017-04-08 09:24] LABS: HEMATOCRIT 35.2 % (39.0-51.0); MEAN CELL VOLUME 91.8 FL (80.0-100.0); MEAN CORPUSCULAR HEMOGLOBIN 29.9 PG (27.0-34.0); MEAN CORPUSCULAR HGB CONC 32.5 % (32.0-36.0); PLATELET COUNT 140 TH/MM3 (150-450); RED BLOOD COUNT 3.84 MIL/MM3 (4.50-5.90); RED CELL DISTRIBUTION WIDTH 12.2 % (11.6-17.2); REVIEW FLAG FINAL; WHITE BLOOD COUNT 5.1 TH/MM3 (4.0-11.0)
[2017-04-08 09:50] LABS: POTASSIUM 4.6 MEQ/L (3.5-5.1)
--- NOTE | 2017-04-08 10:27 | HHI.DS ---
Discharge Summary Admission Date Mar 31, 2017 at 12:45 Discharge Date: Apr 08, 2017 Admitting Diagnosis SEVERE BRADYCARDIA (1) Bradycardia, sinus, persistent, severe ICD Code: R00.1 (2) Pacemaker ICD Code: Z95.0 Procedures Pacemaker placement Brief History - From Admission The patient is an 82-year-old male with a past medical history of diabetes and chronic kidney disease who is presenting to the hospital with a slow heart rate. The patient said that he went to the [place] for a routine follow-up appointment where he was found to have a low heart rate. The patient denies any symptoms. He says he has been breathing comfortably. He denies any aches or pains. He has been eating well. He denies any irregularity in bowel movements. He has not been having any chest pain. He does endorse chronic insomnia. He says he ambulates with a cane because he has pain from prior leg surgeries. In the emergency department he was found to have a heart rate in the high 30s. His blood pressure was also noted to be very high, and the patient denies having a history of high blood pressure. The patient wanted to go home. He says he has been using a nicotine patch but still smokes half a pack a day. He says he was told he has a kidney disease but is unsure what kind. CBC/BMP: 04/08/17 0849 04/08/17 0849 Significant Findings Laboratory Tests Test 04/07/17 04/08/17 06:20 08:49 White Blood Count 3.9 TH/MM3 (4.0-11.0) Red Blood Count 3.87 MIL/MM3 3.84 MIL/MM3 (4.50-5.90) (4.50-5.90) Hemoglobin 11.3 GM/DL 11.5 GM/DL (13.0-17.0) (13.0-17.0) Hematocrit 36.3 % 35.2 % (39.0-51.0) (39.0-51.0) Mean Corpuscular Hemoglobin 31.1 % Concent (32.0-36.0) Platelet Count 125 TH/MM3 140 TH/MM3 (150-450) (150-450) Monocytes (%) (Auto) 9.5 % (0.0-8.0) Chloride Level 110 MEQ/L 112 MEQ/L (98-107) (98-107) Blood Urea Nitrogen 45 MG/DL (7-18) 42 MG/DL (7-18) Creatinine 2.86 MG/DL 2.76 MG/DL (0.60-1.30) (0.60-1.30) Estimat Glomerular Filtration 26 ML/MIN (>89) 27 ML/MIN (>89) Rate Carbon Dioxide Level 19.0 MEQ/L (21.0-32.0) Random Glucose 114 MG/DL (74-106) PE at Discharge GENERAL: This is a well-nourished, well-developed patient, in no apparent distress. NECK: Trachea midline. No JVD or lymphadenopathy. Supple, nontender, no meningeal signs. CARDIOVASCULAR: Bradycardic without murmurs, gallops, or rubs. RESPIRATORY: Clear to auscultation. Breath sounds equal bilaterally. No wheezes , rales, or rhonchi. GASTROINTESTINAL: Abdomen soft, non-tender, nondistended. No hepato-splenomegaly , or palpable masses. No guarding. MUSCULOSKELETAL: Extremities without clubbing, cyanosis, or edema. No joint tenderness, effusion, or edema noted. NEUROLOGICAL: Awake and alert. Cranial nerves II through XII intact. Motor and sensory grossly within normal limits. Five out of 5 muscle strength in all muscle groups. Normal speech. PSYCH: Mood and affect appropriate. Hospital Course Mr. Perdue is an 82-year-old male who was admitted secondary to severe bradycardia with symptoms. Cardiac evaluations determined that the patient was a candidate in and needed a pacemaker placed. Previous discharge have been held secondary to symptomatic bradycardia. Patient had a pacemaker placed and is doing well status post placement without any symptomatic bradycardia. He is doing well postop and is now ready for discharge to home. Medically stable for discharge today. Outpatient cardiology follow-up plan. Pt Condition on Discharge: Stable Discharge Disposition: Discharge Home Discharge Time: <= 30 minutes Discharge Instructions DIET: Follow Instructions for: Heart Healthy Diet Activities you can perform: Regular-No Restrictions Follow up Referrals: Cardiology - 1 Week with Sandeep Sanford MD PCP Follow-up - 3-5 Days New Medications: Lisinopril (Lisinopril) 5 Mg Tab 5 MG PO DAILY Blood Pressure Management #30 TAB Nicotine (Eq Nicotine) 14 Mg/24 Hr Dis 1 PATCH T-DERMAL DAILY smoking cessation #30 PATCH Continued Medications: Aspirin (Aspirin Low Dose) 81 Mg Chew 81 MG CHEW DAILY Ref 0 TAB Carbamide Peroxide (Carbamide Peroxide) 6.5 % Drops Docusate Sodium (Docusate Sodium) 250 Mg Cap 250 MG PO DAILY Prevent Constipation #30 Ref 0 CAP Erythromycin Ethylsuccinate Liq (Erythromycin Ethylsuccinate Liq) 200 Mg/Ml Susp 200 MG PO Q6H Infection Ref [address] (Ferrous Sulfate DR) 324 Mg Tabdr 324 MG PO DAILY Nutritional Supplement #30 Ref 0 TAB Finasteride (Finasteride) 5 Mg Tab 5 MG PO DAILY Do not crush. Manage Prostate Problems #30 Ref 0 TAB Nicotine (Eq Nicotine) 14 Mg/24 Hr Dis Omeprazole (Omeprazole) 20 Mg Tab 20 MG PO DAILY #30 Ref 0 TAB Simvastatin (Simvastatin) 80 Mg Tab 80 MG PO DAILY Cholesterol Management #30 Ref 0 TAB Venlafaxine (Effexor) 75 Mg Tab 75 MG PO DAILY #30 Ref 0 TAB Shay Cortes MD Apr 08, 2017 10:27
[2017-04-08 12:00] VITALS: BP_SYST 100; BP_SYST 170; BP_DIAS 60; BP_DIAS 71; PULSE 45; PULSE 92; RESP 18; RESP 20; TEMP 97.9; TEMP 98.2; O2SAT 100; O2SAT 93
--- NOTE | 2017-04-08 17:22 | MP ---
cc: ALVIN CARRILLO DATE OF SURGERY: 04/07/2017 PREOPERATIVE DIAGNOSIS: Symptomatic bradycardia. POSTOPERATIVE DIAGNOSIS: Symptomatic bradycardia. OPERATION: Implantation of dual chamber rate responsive pacemaker. DESCRIPTION OF PROCEDURE The patient was brought to the cardiac manufacturing lab technician in a fasting state. Sedation was provided by Anesthesia. He received preoperative antibiotics with 1 gram of vancomycin and 2 grams of Ancef. Using 1% lidocaine for local anesthesia an incision was made parallel to and below the left clavicle. Using blunt and sharp dissection a pocket was fashioned above the pectoralis muscle fascia. Next the left subclavian vein was then easily punctured twice and two guidewires placed into the superior vena cava. Over the first guidewire a [place] peel-away sheath was introduced. Through this ventricular lead was inserted and screwed into the low ventricular septum. The position looked optimum on fluoroscopy and a good sensing and pacing thresholds. The peel-away sheath was then removed. Over the second guidewire a 7[place] peel-away sheath was introduced. Through this the atrial lead was inserted and screwed into the right atrial appendage with good sensing and pacing thresholds. Both leads were tested at 10 volts with no diaphragmatic pacing. The leads were then connected to the pacemaker generator. I revised the pocket to position the pacemaker a little bit more medially due to the curvature of his chest and very thin skin. I was satisfied with the position. The can was sutured to the floor of the pocket using a single 2-0 silk suture with the leads behind the can. The wound was irrigated with antibiotic solution and then was closed in layers using interrupted 2-0 Vicryl sutures for the deep fascial layers, interrupted 3-0 Vicryl for the subcutaneous layers and then a running 4-0 Monocryl stitch, and then Steri-Strips and a 4x4 dressing. ESTIMATED BLOOD LOSS: 10 cc. There were no complications. The atrial lead is a Medtronic 4076, length 45-cm, serial number [id number] with a threshold of 0.75 volts, 3.3 mV P-wave and 877 ohm impedance. The ventricular lead is a Medtronic 4076, length 52-cm, serial number [id number] with a threshold of 0.8 volts, R-wave of 20 mV and impedance of 1113 ohms. The pacemaker is a Medtronic model A2DR01, serial number [id number], program MVP at a rate of 60 to 130. Chest x-ray is being ordered to check on his chest. From a cardiology perspective, he would be able to be discharged from tomorrow assuming everything remained stable. MD ANNMARIE Weaver/ELBA /9:14 AM /5:06 PM
== END 2017-04-08 14:08 | disposition home or self-care (01) ==
LOC: NEPC 10:20 → INTOOBSV 12:45 → NEDA 12:45 → N04A 15:15
PROVIDERS: ADMIT Hospitalist; ATTEND Hospitalist
DX: R00.1 Bradycardia, unspecified (principal); E11.22 Type 2 diabetes mellitus with diabetic chronic kidney disease; I13.0 Hypertensive heart and chronic kidney disease with heart failure and stage 1 through stage 4 chronic kidney disease, or unspecified chronic kidney disease; I50.9 Heart failure, unspecified; N18.9 Chronic kidney disease, unspecified; D64.9 Anemia, unspecified; R53.1 Weakness; M79.606 Pain in leg, unspecified; G89.29 Other chronic pain; R26.2 Difficulty in walking, not elsewhere classified; R42 Dizziness and giddiness; I49.8 Other specified cardiac arrhythmias; R00.2 Palpitations; R91.8 Other nonspecific abnormal finding of lung field; R06.02 Shortness of breath; G47.00 Insomnia, unspecified; I25.10 Atherosclerotic heart disease of native coronary artery without angina pectoris; K21.9 Gastro-esophageal reflux disease without esophagitis; F17.200 Nicotine dependence, unspecified, uncomplicated; Z79.82 Long term (current) use of aspirin; Z79.899 Other long term (current) drug therapy
CPT/HCPCS: 33208; 71010; 76937; 78452; 80048; 80053; 81001; 82550; 82552; 82948; 83735; 83880; 84443; 84484; 85025; 85027; 85610; 85730; 87086; 93005; 93017; 93225; 93226; 93306; 94640; 94664; 96374; 97162; 99291; A9502; C1785; C1898; G0378; G8987; G8988; J0690; J1644; J2250; J2785; J3010; J3370; J7030; J7050; J7613